=== PATIENT | male | born 1970 | race Caucasian/White ===

== ENCOUNTER 2019-02-24 21:51 | Emergency (ER) | payer SELFPAY ==
[~2019-02-24] VITALS: Ht 177.8 cm; Wt 112.5 kg
[2019-02-24 22:17] VITALS: BP 136/85
[2019-02-24] MEDS ORDERED: LORazepam 2 MG/ML VIAL IVP ONE (23:05)
[2019-02-24] MEDS ORDERED: ALBUTEROL SULFATE/IPRATROPIU 3 ML SOL IH ONE (23:05)
[2019-02-24 23:18] LABS: BASOPHILS # (AUTO) 0.1 K/uL (0.00-0.22); BASOPHILS % (AUTO) 1.3 % (0.0-2.0); EOSINOPHILS # (AUTO) 0.3 K/uL (0-0.4); EOSINOPHILS % (AUTO) 3.1 % (0.0-4.0); HEMATOCRIT 40.7 % (36-52); HEMOGLOBIN 13.3 g/dL (12.0-18.0); LYMPHOCYTES # (AUTO) 2.1 K/uL (2.0-11.5); LYMPHOCYTES % (AUTO) 22.8 % (20.5-51.1); MEAN CORPUSCULAR HEMOGLOBIN 27 pg (27-31); MEAN CORPUSCULAR HGB CONC 33 g/dL (33-37); MONOCYTES # (AUTO) 0.7 K/uL (0.8-1.0); MONOCYTES % (AUTO) 7.1 % (1.7-9.3); NEUTROPHILS # (AUTO) 6.1 K/uL (1.8-7.7); NEUTROPHILS % (AUTO) 65.7 % (42.2-75.2); PLATELET COUNT (AUTO) 296 K/uL (140-450); RED BLOOD CELL COUNT(AUTO) 4.96 MIL/uL (4.20-6.10); WHITE BLOOD COUNT (AUTO) 9.3 K/uL (4.8-10.8)
[2019-02-24 23:27] LABS: ANION GAP 10.1 (8-16); CARBON DIOXIDE 29.8 mmol/L (21-32); CREATININE 0.9 mg/dL (0.7-1.3); POTASSIUM 3.9 mmol/L (3.5-5.1)
[2019-02-24 23:32] LABS: ALBUMIN 3.3 g/dL (3.4-5.0); TOTAL BILIRUBIN 0.3 mg/dL (0.0-1.0)
[2019-02-24 23:35] LABS: PROTHROMBIN TIME 10.3 secs (10.8-13.4)
[2019-02-25] MEDS ORDERED: ALBUTEROL SULFATE/IPRATROPIU 3 ML SOL IH ONE
[2019-02-25] MEDS ORDERED: methylPREDNISolone SS 125 MG/2 ML VIAL IVP ONE
[2019-02-25 00:18] VITALS: BP 138/74
== END 2019-02-25 00:18 | disposition home or self-care (01) ==
LOC: MED 21:51
DX: J44.9 Chronic obstructive pulmonary disease, unspecified (principal); F17.210 Nicotine dependence, cigarettes, uncomplicated; E11.9 Type 2 diabetes mellitus without complications; I10 Essential (primary) hypertension; F41.9 Anxiety disorder, unspecified; Z71.6 Tobacco abuse counseling
CPT/HCPCS: 36415; 71045; 80053; 83880; 84484; 85025; 85610; 85730; 87040; 93005; 94640; 94760; 96374; 99284; J2060; J7620

== ENCOUNTER 2019-03-26 22:15 | Inpatient (IN) | payer MEDICAID ==
[~2019-03-26] VITALS: Ht 177.8 cm; Wt 117.9 kg
[2019-03-26 22:15] VITALS: BP 130/76
--- NOTE | 2019-03-26 22:18 | NUR ---
Patient BIBA ACLS, transferred to bed 5. RN evaluating patient at bedside.
--- NOTE | 2019-03-26 22:40 | NUR ---
49/M BIBA FROM HOME, C/O EPISODE OF SOB, PALPITATIONS AND ANXIETY, 1 HR AGO. PT REPORTS FEELING THESE SYMPTOMS THAT PAST 2 MONTHS BUT WORSENING. PT ALSO C/O BLE PAIN AND SWELLING. PT AWAKE AND ALERT, SKIN NORMAL WARM AND DRY, SPO2 97% ON RA, RR 20 EVEN AND UNLABORED. LUNG SOUNDS CLEAR BL. HR 94, NSR ON MONITOR. BLE EDEMA NOTED. HX CHF, COPD, HTN, DM, ASTHMA, HLD, ANXIETY RX METFORMIN, HTN MED, HLD MED, ALBUTEROL INH; NONCOMPLIANT AT THIS TIME DUE TO PT NOT HAVING INSURANCE
[2019-03-26 23:41] LABS: BASOPHILS # (AUTO) 0.1 K/uL (0.00-0.22); BASOPHILS % (AUTO) 0.7 % (0.0-2.0); EOSINOPHILS # (AUTO) 0.1 K/uL (0-0.4); EOSINOPHILS % (AUTO) 1.8 % (0.0-4.0); HEMATOCRIT 38.1 % (36-52); HEMOGLOBIN 12.5 g/dL (12.0-18.0); LYMPHOCYTES % (AUTO) 25.5 % (20.5-51.1); MEAN CORPUSCULAR HEMOGLOBIN 27 pg (27-31); MEAN CORPUSCULAR HGB CONC 33 g/dL (33-37); MEAN CORPUSCULAR VOLUME 80.9 fL (80-94); MONOCYTES # (AUTO) 0.6 K/uL (0.8-1.0); MONOCYTES % (AUTO) 7.8 % (1.7-9.3); NEUTROPHILS # (AUTO) 5.1 K/uL (1.8-7.7); NEUTROPHILS % (AUTO) 64.2 % (42.2-75.2); PLATELET COUNT (AUTO) 266 K/uL (140-450); RED BLOOD CELL COUNT(AUTO) 4.71 MIL/uL (4.20-6.10); RED CELL DISTRIBUTION WIDTH 16.7 % (11.6-13.7); WHITE BLOOD COUNT (AUTO) 7.9 K/uL (4.8-10.8)
[2019-03-26 23:48] LABS: ANION GAP 11.2 (8-16); CARBON DIOXIDE 26.5 mmol/L (21-32); CREATININE 0.8 mg/dL (0.7-1.3); POTASSIUM 3.7 mmol/L (3.5-5.1)
[2019-03-26 23:53] LABS: ALBUMIN 3.3 g/dL (3.4-5.0); TOTAL BILIRUBIN 0.5 mg/dL (0.0-1.0)
[2019-03-27] MEDS ORDERED: KETOROLAC 30 MG/ML VIAL IVP ONE (00:05)
[2019-03-27] MEDS ORDERED: FUROSEMIDE 40 MG/4 ML VIAL IVP ONE (00:05)
--- NOTE | 2019-03-27 00:26 | NUR ---
PT C/O ANXIETY AND BLE PAIN. DR GARCIA MADE AWARE. ADMINISTERED ORDERED MEDS WITH EDUCATION, PT VERBALIZED UNDERSTANDING, TOLERATED MEDS WELL. ALL NEEDS MET AT THIS TIME.
[2019-03-27] MEDS ORDERED: LORazepam 2 MG/ML VIAL IVP ONE (00:55)
--- NOTE | 2019-03-27 01:10 | NUR ---
Dr. Tavera evaluating patient at bedside.
--- NOTE | 2019-03-27 01:25 | NUR ---
Patient will be admitted to care of DR HEARN. Admited to TELE. Will go to room 119B. Belongings list completed. Report to KIMBER COLINDRES
[2019-03-27 01:30] VITALS: BP 121/77
--- NOTE | 2019-03-27 01:30 | NUR ---
RECEIVED PT FROM ER VIA JAYE REPORT GIVEN AT BED SIDE ON TELEMETRYSR PT IS AAOX4 AMBULATORY BILATERAL LOWER EXTREMITIES EDEMA PITTING 2+ NOT SOB NOTED HL ON LEFT AC PATENT, ON LEFT LOWER LEG SMALL ABRASION PT DENIES ANY PAIN ,MRSA NARES PROTOCOL DONE AND SENT TO LAB , PT IS ORIENTED TO THE FLOOR CALL LIGHT WITHIN REACH
[2019-03-27] MEDS ORDERED: METF500T PO (01:32)
[2019-03-27] MEDS ORDERED: FURO-572 PO (01:32)
[2019-03-27] MEDS ORDERED: NACL 0.9% 1,000 ML IV SCH (01:42)
[2019-03-27] MEDS ORDERED: DEXTROSE 50% 50 ML SYR IVP PRN (01:45)
[2019-03-27] MEDS ORDERED: VANCOMYCIN PER PHARMACY MC PRN (01:45)
[2019-03-27] MEDS ORDERED: HEPARIN PER PHARMACY MC PRN (01:45)
[2019-03-27] MEDS ORDERED: INSULIN LISPRO SLIDING SCALE 100 UNITS/ML VIAL SUBQ PRN (01:45)
[2019-03-27] MEDS ORDERED: ACETAMINOPHEN 325 MG TAB PO PRN (01:45)
[2019-03-27] MEDS ORDERED: HYDROcodone/APAP 7.5/325 MG 1 TAB PO PRN (01:45)
[2019-03-27] MEDS ORDERED: ONDANSETRON 4 MG/2 ML VIAL IVP PRN (01:45)
[2019-03-27] MEDS ORDERED: ZOLPIDEM 5 MG TAB PO PRN (01:45)
[2019-03-27] MEDS ORDERED: ALBUTEROL SULFATE/IPRATROPIU 3 ML SOL IH PRN (02:10)
[2019-03-27] MEDS ORDERED: VANCOMYCIN 1,500 MG in NACL 0.9% 500 ML IV SCH (02:30)
[2019-03-27] MEDS ORDERED: hePARIN / DEXT 5% PREMIX 250 ML IV SCH (02:40)
--- NOTE | 2019-03-27 03:11 | NUR ---
PT ON HEPARIN DRIP ORDER AND BOLUS HEPARIN 4000 IVP GIVEN ORDER
[2019-03-27 03:14] LABS: PROTHROMBIN TIME 10.1 secs (10.8-13.4)
--- NOTE | 2019-03-27 03:16 | NUR ---
AT 0316 AM HEPARIN DRIP STARTED AT 1000 UNITS /H OR 10 ML/H
[2019-03-27 03:26] LABS: FREE T4 (FREE THYROXINE) 1.2 ng/dL (0.76-1.46); MAGNESIUM 1.7 mg/dL (1.8-2.4); PHOSPHORUS 5.3 mg/dL (2.5-4.9); THYROID STIMULATING HORMONE 1.52 uIU/mL (0.34-3.74)
[2019-03-27 04:00] VITALS: BP 150/77
--- NOTE | 2019-03-27 05:00 | NUR ---
PT ON HEPARIN DRIP NOT DISTRESS NOTED SLEEPING WELL AT THIS TIME ON TELE SR
--- NOTE | 2019-03-27 06:30 | NUR ---
BLOOD SUGAR TEST 164 COVERAGE WITH 2 UNITS SUBQ HUMALOG FOLLOW PROTOCOL
--- NOTE | 2019-03-27 07:09 | NUR ---
HEPARIN DRIP 1000 UNITS/H OR 10 ML/H PT WILLBE ENDORSED TODAY SHIFT NURSE FOR CONTINUE OF CARE
--- NOTE | 2019-03-27 07:14 | NUR ---
RECEIVED PT FROM [employer] MEAT SEPARATOR OPERATOR NURSEKIMBER, PT IS AWAKE AND EATING HIS BREAKFAST, IV LINE ON THE LEFT AC G. 20 WITH HEPARIN DRIP INFUSING AT 1000 UNITS/HR, SIDE RAILS ARE UP AND CALL LIGHT WITHIN REACH,PT DENIES PAIN AND NO SIGN OF DISTRESS NOTED. WILL MONITOR PT.
[2019-03-27 07:29] LABS: BASOPHILS # (AUTO) 0.1 K/uL (0.00-0.22); EOSINOPHILS # (AUTO) 0.1 K/uL (0-0.4); EOSINOPHILS % (AUTO) 1.4 % (0.0-4.0); HEMATOCRIT 42.7 % (36-52); HEMOGLOBIN 13.8 g/dL (12.0-18.0); LYMPHOCYTES # (AUTO) 1.9 K/uL (2.0-11.5); LYMPHOCYTES % (AUTO) 22.3 % (20.5-51.1); MEAN CORPUSCULAR HEMOGLOBIN 26 pg (27-31); MEAN CORPUSCULAR HGB CONC 32 g/dL (33-37); MEAN CORPUSCULAR VOLUME 81.7 fL (80-94); MONOCYTES # (AUTO) 0.6 K/uL (0.8-1.0); NEUTROPHILS # (AUTO) 5.9 K/uL (1.8-7.7); NEUTROPHILS % (AUTO) 68.3 % (42.2-75.2); PLATELET COUNT (AUTO) 288 K/uL (140-450); RED BLOOD CELL COUNT(AUTO) 5.23 MIL/uL (4.20-6.10); RED CELL DISTRIBUTION WIDTH 17.1 % (11.6-13.7); WHITE BLOOD COUNT (AUTO) 8.7 K/uL (4.8-10.8)
[2019-03-27] MEDS ORDERED: BLOOD GLUCOSE MONITORING 1 DEV DEV FS SCH (07:30)
[2019-03-27 07:46] LABS: ANION GAP 13.3 (8-16); CARBON DIOXIDE 28.5 mmol/L (21-32); POTASSIUM 3.8 mmol/L (3.5-5.1)
[2019-03-27 07:54] LABS: MAGNESIUM 1.7 mg/dL (1.8-2.4); PHOSPHORUS 4.2 mg/dL (2.5-4.9)
[2019-03-27 08:00] VITALS: BP 137/75
[2019-03-27] MEDS ORDERED: metFORMIN 500 MG TAB PO SCH (08:00)
[2019-03-27] MEDS ORDERED: MAG SULF 2000 MG/WATER PREMIX 50 ML IV SCH (08:30)
--- NOTE | 2019-03-27 08:48 | NUR ---
PT VERBALIZED THAT HE WANTS TO SMOKE AND WAS ADVISED THAT HE CANNOT DO IT HERE IN THE HOSPITAL, SO PT SAID THAT IF HE CANNOT SMOKE THEN HE WILL LEAVE THE HOSPITAL. DR. ROCHA SPOKE TO PT AND WAS TOLD OF THE CONSEQUENCES IF PT LEAVES AMA, SAID TO PT THAT IF HE LEAVES, HE MIGHT HAVE AN ISCHEMIA BU PT REFUSED. PT SIGNED AMA FORM WITH THE PRESENCE OF .
--- NOTE | 2019-03-27 08:59 | NUR ---
PT WAS GIVEN THE ORAL MEDICATIONS AND TOLERATED IT.
[2019-03-27] MEDS ORDERED: GABAPENTIN 300 MG CAP PO SCH (09:00)
[2019-03-27] MEDS ORDERED: FUROSEMIDE 40 MG/4 ML VIAL IVP SCH (09:00)
[2019-03-27] MEDS ORDERED: AMPICILLIN/SULBACTAM 1.5 GM in NACL 0.9% 50 ML IV SCH (09:00)
[2019-03-27] MEDS ORDERED: DOCUSATE SODIUM 100 MG GELCAP PO SCH (09:00)
[2019-03-27] MEDS ORDERED: LISINOPRIL 10 MG TAB PO SCH (09:00)
--- NOTE | 2019-03-27 09:05 | NUR ---
PT LEFT AMA, WALKED THROUGH THE LOBBY, PT IS STABLE AT THIS TIME. DR. ROCHA WAS INFORMED. PRESCRIPTION WAS GIVEN TO PT.
--- NOTE | 2019-03-27 09:10 | NUR ---
RECEIVED FNS REFERRAL. PATIENT HAS BEEN SCREENED AND CATEGORIZED HIGH NUTRITION RISK. PATIENT WILL BE SEEN WITHIN 1-2 DAYS OF ADMISSION. 03/27/[address]
[2019-03-27] MEDS ORDERED: SIMVASTATIN 10 MG TAB PO SCH (21:00)
== END 2019-03-27 10:52 | disposition left against medical advice (07) | DRG 194 ==
LOC: MED 22:15 → MTU 03-27 00:56
PROVIDERS: ADMIT General Practice; ATTEND General Practice
DX: I11.0 Hypertensive heart disease with heart failure (principal); E83.42 Hypomagnesemia; L03.115 Cellulitis of right lower limb; L03.116 Cellulitis of left lower limb; E11.9 Type 2 diabetes mellitus without complications; E78.5 Hyperlipidemia, unspecified; E66.9 Obesity, unspecified; I50.43 Acute on chronic combined systolic (congestive) and diastolic (congestive) heart failure; J44.9 Chronic obstructive pulmonary disease, unspecified; F41.9 Anxiety disorder, unspecified; F17.210 Nicotine dependence, cigarettes, uncomplicated; M10.9 Gout, unspecified; Z83.6 Family history of other diseases of the respiratory system; Z82.49 Family history of ischemic heart disease and other diseases of the circulatory system; Z68.37 Body mass index [BMI] 37.0-37.9, adult; Z53.21 Procedure and treatment not carried out due to patient leaving prior to being seen by health care provider
CPT/HCPCS: 36415; 71045; 80048; 80053; 82150; 82948; 83036; 83690; 83735; 83880; 84100; 84439; 84443; 84484; 85025; 85610; 85651; 85730; 86140; 87040; 87081; 93005; 93925; 93970; 96374; 96375; 99285; J0295; J1644; J1815; J1885; J1940; J2060; J3370; J7030; Q0092

== ENCOUNTER 2019-05-13 01:03 | Emergency (ER) | payer SELFPAY ==
[~2019-05-13] VITALS: Ht 177.8 cm; Wt 108.9 kg
[~2019-05-13 01:03] MED LIST: FURO-572 PO; METF500T PO
[2019-05-13 01:08] VITALS: BP 110/79
[2019-05-13] MEDS ORDERED: LORazepam 2 MG/ML VIAL IM ONE (01:10)
[2019-05-13 01:42] VITALS: BP 110/79
== END 2019-05-13 01:42 | disposition home or self-care (01) ==
LOC: MED 01:03
DX: F41.9 Anxiety disorder, unspecified (principal); J44.9 Chronic obstructive pulmonary disease, unspecified; E11.9 Type 2 diabetes mellitus without complications; I11.0 Hypertensive heart disease with heart failure; I50.9 Heart failure, unspecified; F17.210 Nicotine dependence, cigarettes, uncomplicated; Z79.84 Long term (current) use of oral hypoglycemic drugs; Z79.899 Other long term (current) drug therapy
CPT/HCPCS: 96372; 99284; J2060

== ENCOUNTER 2020-04-11 01:40 | Emergency (ER) | payer OTHER ==
[~2020-04-11] VITALS: Ht 180.3 cm; Wt 113.4 kg
--- NOTE | 2020-04-11 01:58 | NUR ---
pt ambulated to ER bed 8 w/ steady gait.
[2020-04-11 02:01] VITALS: BP 164/89
--- NOTE | 2020-04-11 02:05 | NUR ---
50 y/o male presented to ED c/o SOB x 1 day . Pt states he is having difficulty catching his breath. Pt states he was trying to go upstairs at his apartment complex and was having an issue catching his breath. Pt thinks he may be more having anxiety about being SOB than actually being SOB. A/O x 4 , hx of COPD - Lung sounds BL clear, RR even and unlabored , SAO2 97%. pt admits to smoking 1/2 cigarettes a day. Pt sitting in chair at bedside, pt states he can't lay in the bed, it makes him feel anxious. No acute distress noted at this time. pmh: COPD, HTN, DM, Anxiety, ax: steroids (hives)
--- NOTE | 2020-04-11 02:10 | NUR ---
ERMD at bedside for medical evaluation.
[2020-04-11] MEDS ORDERED: ALBUTEROL SULFATE/IPRATROPIU 3 ML SOL IH ONE (02:15)
[2020-04-11] MEDS ORDERED: LORazepam 1 MG TAB PO ONE (02:15)
--- NOTE | 2020-04-11 02:19 | NUR ---
RT at bedside.
--- NOTE | 2020-04-11 02:47 | NUR ---
xray at bedside.
[2020-04-11 02:57] VITALS: BP 164/89
--- NOTE | 2020-04-11 02:57 | NUR ---
Patient discharged with v/s stable. Written and verbal after care instructions given and explained. Patient verbalized understanding. Ambulatory with steady gait. All questions addressed prior to discharge. Advised to follow up with PMD.
== END 2020-04-11 02:57 | disposition home or self-care (01) ==
LOC: MED 01:40
DX: F41.9 Anxiety disorder, unspecified (principal); R06.02 Shortness of breath; J44.9 Chronic obstructive pulmonary disease, unspecified; E11.9 Type 2 diabetes mellitus without complications; F17.210 Nicotine dependence, cigarettes, uncomplicated; I50.9 Heart failure, unspecified; I10 Essential (primary) hypertension; J45.909 Unspecified asthma, uncomplicated; Z79.899 Other long term (current) drug therapy
CPT/HCPCS: 71045; 82948; 94640; 99284; Q0092

== ENCOUNTER 2021-03-19 01:14 | Emergency (ER) | payer OTHER ==
[~2021-03-19] VITALS: Ht 180.3 cm; Wt 108.9 kg
[2021-03-19 01:41] VITALS: BP 126/70
[2021-03-19] MEDS ORDERED: IBUPROFEN 800 MG TAB PO ONE (02:00)
--- NOTE | 2021-03-19 02:30 | NUR ---
PATIENT REFUSED MEDICATION, ERMD NOTED. MEDICATION RETURNED
[2021-03-19] MEDS ORDERED: HYDROcodone/APAP 5/325 MG 1 TAB TAB PO ONE (02:55)
[2021-03-19] MEDS ORDERED: MUPI2CRE22 TP (03:10)
[2021-03-19] MEDS ORDERED: IBUP-2213 PO (03:10)
[2021-03-19] MEDS ORDERED: SULF-59 PO (03:10)
[2021-03-19] MEDS ORDERED: BACITRACIN OINT 500 UNITS/GM PKT TP ONE (03:11)
[2021-03-19 04:00] VITALS: BP 126/70
== END 2021-03-19 03:43 | disposition home or self-care (01) ==
LOC: MED 01:14
DX: L97.519 Non-pressure chronic ulcer of other part of right foot with unspecified severity (principal); L03.031 Cellulitis of right toe; I11.0 Hypertensive heart disease with heart failure; I50.9 Heart failure, unspecified; J44.9 Chronic obstructive pulmonary disease, unspecified; Z79.84 Long term (current) use of oral hypoglycemic drugs; Z79.899 Other long term (current) drug therapy
CPT/HCPCS: 73630; 99283

== ENCOUNTER 2021-06-30 19:38 | Emergency (ER) | payer OTHER ==
[~2021-06-30] VITALS: Ht 180.3 cm; Wt 113.2 kg
[~2021-06-30 19:38] MED LIST changes: +IBUP-2213 PO; +MUPI2CRE22 TP; +SULF-59 PO
[2021-06-30 19:58] VITALS: BP 140/101
--- NOTE | 2021-06-30 20:01 | NUR ---
JEANCARLOS SCHAEFER IN TRIAGE ASSESSING PT.
[2021-06-30] MEDS ORDERED: ONDANSETRON 4 MG ODT PO ONE (20:05)
[2021-06-30] MEDS ORDERED: LORazepam 0.5 MG TAB PO ONE (20:05)
--- NOTE | 2021-06-30 20:41 | NUR ---
SEE COMPLETE ASSESSMENT FOR FURTHER INFORMATION. PT RETURNED TO THE LOBBY TO A/W BED.
[2021-06-30] MEDS ORDERED: BACI-105 TP (21:14)
== END 2021-06-30 21:24 | disposition home or self-care (01) ==
LOC: MED 19:38
DX: S80.812A Abrasion, left lower leg, initial encounter (principal); E11.65 Type 2 diabetes mellitus with hyperglycemia; J44.1 Chronic obstructive pulmonary disease with (acute) exacerbation; I10 Essential (primary) hypertension; X58.XXXA Exposure to other specified factors, initial encounter; Y93.89 Activity, other specified; Y92.89 Other specified places as the place of occurrence of the external cause; Y99.8 Other external cause status
CPT/HCPCS: 99283; Q0162

== ENCOUNTER 2022-02-20 03:00 | Emergency (ER) | payer OTHER ==
[~2022-02-20] VITALS: Ht 180.3 cm; Wt 122.5 kg
[~2022-02-20 03:00] MED LIST changes: +BACI-105 TP; +METF-346 PO; -METF500T PO
[2022-02-20 03:04] VITALS: BP 114/72
--- NOTE | 2022-02-20 03:18 | NUR ---
PT AMBULATED TO BED 4
--- NOTE | 2022-02-20 03:22 | NUR ---
52 Y/O MALE BIBS FROME HOME, C/O ULCER TO RIGHT FOOT AND PAIN TO BILATERAL LOWER EXTREMETIES. PT STATES HE HAS HAD THE PAIN FOR 2 WKS. TODAY FAMILY NOTICED THE ULCERS. PT ADMITS TO BEING NON COMPLIANT WITH MEDS AMD NOT CONTROLLING HIS SUGAR. PAIN IS 10/10 TO BOTH FEET, BLE EDEMA, NON PITTING. DENIES N/V/D, SAMPSON, CP, SOB, FEVER, OR COUGH. SKIN IS DUSKY/WARM/DRY. A/OX4, UNLABORED BREATHING, AMBULATORY. HX: HTN, GOUT, NEUROPATHY, DM, ASTHMA NKA.
[2022-02-20] MEDS ORDERED: HYDR-5080 PO (03:30)
[2022-02-20] MEDS ORDERED: GABA100C PO (03:30)
--- NOTE | 2022-02-20 03:30 | NUR ---
Dr. Borja examining patient.
[2022-02-20] MEDS ORDERED: MORPHINE SULFATE 4 MG/ML SYR IM ONE (03:35)
[2022-02-20] MEDS ORDERED: CEPH-588 PO (03:56)
[2022-02-20 04:08] VITALS: BP 122/80
--- NOTE | 2022-02-20 04:09 | NUR ---
Patient discharged with v/s stable. Written and verbal after care instructions given and explained. Patient alert, oriented and verbalized understanding of instructions. Ambulatory with steady gait. All questions addressed prior to discharge. ID band removed. Patient advised to follow up with PMD. Rx of KEFLEX given. Patient educated on indication of medication including possible reaction and side effects. Opportunity to ask questions provided and answered. VSS, A/OX4, UNLABORED BREATHING, AMBULATORY, AND CALM DEMEANOR.
== END 2022-02-20 04:09 | disposition home or self-care (01) ==
LOC: MED 03:00
DX: E11.621 Type 2 diabetes mellitus with foot ulcer (principal); J44.9 Chronic obstructive pulmonary disease, unspecified; I10 Essential (primary) hypertension; F17.200 Nicotine dependence, unspecified, uncomplicated; Z79.84 Long term (current) use of oral hypoglycemic drugs; Z79.899 Other long term (current) drug therapy
CPT/HCPCS: 96372; 99283; J2270

== ENCOUNTER 2022-03-05 02:10 | Emergency (ER) | payer OTHER ==
[~2022-03-05] VITALS: Ht 180.3 cm; Wt 101.6 kg
[~2022-03-05 02:10] MED LIST changes: -BACI-105 TP; +CEPH-588 PO; +GABA100C PO; +HYDR-5080 PO; -IBUP-2213 PO; -MUPI2CRE22 TP; -SULF-59 PO
[2022-03-05 02:20] VITALS: BP 115/79
--- NOTE | 2022-03-05 02:28 | NUR ---
Patient ambulated to bed 2.
--- NOTE | 2022-03-05 02:55 | NUR ---
Dr. De La Torre examining patient.
[2022-03-05] MEDS ORDERED: ONDANSETRON 4 MG ODT PO ONE (03:05)
[2022-03-05] MEDS ORDERED: MORPHINE SULFATE 10 MG/ML VIAL IM ONE (03:05)
[2022-03-05] MEDS ORDERED: GABAPENTIN 300 MG CAP PO ONE (03:05)
[2022-03-05] MEDS ORDERED: ONDANSETRON 4 MG/2 ML VIAL IVP ONE (03:10)
[2022-03-05] MEDS ORDERED: NACL 0.9% 2,000 ML IV ONE (03:10)
[2022-03-05] MEDS ORDERED: MORPHINE SULFATE 10 MG/ML VIAL IVP ONE (03:10)
--- NOTE | 2022-03-05 03:44 | NUR ---
Patient does not wish to proceed with medical care recommended by DR GIRMM. Patient given information related to possible complications, up to and including , which could occur as a result of leaving hospital at this time. Patient verbalizes understanding of risks involved leaving against medical advice. Patient has signed AMA form.
[2022-03-05 03:49] VITALS: BP 140/60
== END 2022-03-05 03:44 | disposition left against medical advice (07) ==
LOC: MED 02:10
DX: E11.65 Type 2 diabetes mellitus with hyperglycemia (principal); M79.671 Pain in right foot; M79.672 Pain in left foot; G62.9 Polyneuropathy, unspecified; I11.0 Hypertensive heart disease with heart failure; I50.9 Heart failure, unspecified; J44.9 Chronic obstructive pulmonary disease, unspecified; Z79.84 Long term (current) use of oral hypoglycemic drugs; Z79.899 Other long term (current) drug therapy
CPT/HCPCS: 96374; 96375; 99284; J2270; J2405; J7030

== ENCOUNTER 2022-05-27 06:00 | Emergency (ER) | payer OTHER ==
[~2022-05-27] VITALS: Ht 180.3 cm; Wt 108.9 kg
[2022-05-27 06:04] VITALS: BP 139/83
--- NOTE | 2022-05-27 06:25 | NUR ---
TO BED 4
[2022-05-27] MEDS ORDERED: HYDROcodone/APAP 5/325 MG 1 TAB TAB PO ONE (06:40)
[2022-05-27] MEDS ORDERED: NACL 0.9% 1,000 ML IV ONE (06:40)
[2022-05-27 07:07] LABS: ANION GAP 11.9 (8-16); CARBON DIOXIDE 28.4 mmol/L (21-32); POTASSIUM 4.3 mmol/L (3.5-5.1)
[2022-05-27] MEDS ORDERED: INSULIN REGULAR, HUMAN 100 UNIT/ML VIAL SUBQ ONE (07:15)
[2022-05-27 07:30] LABS: BASOPHILS % (AUTO) 0.4 % (0.0-2.0); EOSINOPHILS # (AUTO) 0.1 K/uL (0-0.4); EOSINOPHILS % (AUTO) 1.4 % (0.0-4.0); HEMOGLOBIN 13.6 g/dL (12.0-18.0); LYMPHOCYTES # (AUTO) 2.4 K/uL (2.0-11.5); LYMPHOCYTES % (AUTO) 25.9 % (20.5-51.1); MEAN CORPUSCULAR HEMOGLOBIN 28 pg (27-31); MEAN CORPUSCULAR HGB CONC 33 g/dL (33-37); MEAN CORPUSCULAR VOLUME 82.7 fL (80-94); MONOCYTES # (AUTO) 0.7 K/uL (0.8-1.0); MONOCYTES % (AUTO) 7.6 % (1.7-9.3); NEUTROPHILS # (AUTO) 5.9 K/uL (1.8-7.7); NEUTROPHILS % (AUTO) 64.7 % (42.2-75.2); PLATELET COUNT (AUTO) 302 K/uL (140-450); RED BLOOD CELL COUNT(AUTO) 4.95 MIL/uL (4.20-6.10); RED CELL DISTRIBUTION WIDTH 13.7 % (11.6-13.7); WHITE BLOOD COUNT (AUTO) 9.2 K/uL (4.8-10.8)
--- NOTE | 2022-05-27 07:40 | NUR ---
Pt report given to BERNADINE JORGENSEN. BY BOAT WORKERBERNADINE BENÍTEZ Transfer of care at this time.
[2022-05-27] MEDS ORDERED: KETOROLAC 15 MG/ML VIAL IVP ONE (08:20)
--- NOTE | 2022-05-27 09:04 | NUR ---
Patient discharged with v/s stable. Written and verbal after care instructions given and explained. Patient alert, oriented and verbalized understanding of instructions. Ambulatory with steady gait. All questions addressed prior to discharge. ID band removed. Patient advised to follow up with PMD.NO Rx given. Patient educated on indication of medication including possible reaction and side effects. Opportunity to ask questions provided and answered. AKIRA DISCHARGED BY ER/MD DR ROCHA
[2022-05-27] MEDS ORDERED: BACITRACIN OINT 500 UNITS/GM PKT TP ONE (09:05)
[2022-05-27 09:40] VITALS: BP 122/75
== END 2022-05-27 09:04 | disposition home or self-care (01) ==
LOC: MED 06:00
DX: E11.621 Type 2 diabetes mellitus with foot ulcer (principal); E11.65 Type 2 diabetes mellitus with hyperglycemia; M10.9 Gout, unspecified; J45.909 Unspecified asthma, uncomplicated; I25.10 Atherosclerotic heart disease of native coronary artery without angina pectoris; J44.9 Chronic obstructive pulmonary disease, unspecified; I10 Essential (primary) hypertension; Z79.4 Long term (current) use of insulin; Z79.899 Other long term (current) drug therapy
CPT/HCPCS: 36415; 73630; 80048; 85025; 85651; 86140; 87040; 96372; 96374; 99284; J1815; J1885; J7030; Q0092

== ENCOUNTER 2022-06-12 04:54 | Emergency (ER) | payer OTHER ==
[~2022-06-12] VITALS: Ht 180.3 cm; Wt 108.9 kg
[2022-06-12 05:01] VITALS: BP 125/80
--- NOTE | 2022-06-12 05:12 | NUR ---
ER MD in triage examining pt
[2022-06-12] MEDS ORDERED: traMADol 50 MG TAB PO ONE (05:25)
[2022-06-12] MEDS ORDERED: DOXYCYCLINE 100 MG CAP PO STA (05:26)
--- NOTE | 2022-06-12 06:15 | NUR ---
PT CALLED FROM INSIDE LOBBY AND OUTSIDE FOR TREATMENT, NO RESPONSE
--- NOTE | 2022-06-12 06:47 | NUR ---
PATIENT ELOPED FROM FACILITY. DISCHARGE INSTRUCTIONS NOT GIVEN TO PATIENT. DR. PATEL NOTIFIED.
--- NOTE | 2022-06-12 06:47 | NUR ---
called for pt. no answer.
== END 2022-06-12 06:15 | disposition left against medical advice (07) ==
LOC: MED 04:54
DX: E11.621 Type 2 diabetes mellitus with foot ulcer (principal); M25.511 Pain in right shoulder; J44.9 Chronic obstructive pulmonary disease, unspecified; I11.0 Hypertensive heart disease with heart failure; I50.9 Heart failure, unspecified; Z79.84 Long term (current) use of oral hypoglycemic drugs; Z79.899 Other long term (current) drug therapy
CPT/HCPCS: 99283

== ENCOUNTER 2022-06-18 13:58 | Inpatient (IN) | payer OTHER ==
[~2022-06-18] VITALS: Ht 180.3 cm; Wt 108.9 kg
[2022-06-18 14:08] VITALS: BP 145/96
[2022-06-18] MEDS ORDERED: MORPHINE SULFATE 4 MG/ML SYR IVP ONE (14:30)
[2022-06-18] MEDS ORDERED: NACL 0.9% 1,000 ML IV ONE (14:30)
[2022-06-18 14:44] LABS: BASOPHILS % (AUTO) 0.4 % (0.0-2.0); EOSINOPHILS # (AUTO) 0.2 K/uL (0-0.4); EOSINOPHILS % (AUTO) 1.6 % (0.0-4.0); HEMATOCRIT 40.4 % (36-52); HEMOGLOBIN 13.2 g/dL (12.0-18.0); LYMPHOCYTES # (AUTO) 1.7 K/uL (2.0-11.5); LYMPHOCYTES % (AUTO) 17.2 % (20.5-51.1); MEAN CORPUSCULAR HEMOGLOBIN 27 pg (27-31); MEAN CORPUSCULAR HGB CONC 33 g/dL (33-37); MONOCYTES # (AUTO) 0.6 K/uL (0.8-1.0); NEUTROPHILS # (AUTO) 7.6 K/uL (1.8-7.7); NEUTROPHILS % (AUTO) 74.8 % (42.2-75.2); PLATELET COUNT (AUTO) 535 K/uL (140-450); RED BLOOD CELL COUNT(AUTO) 4.93 MIL/uL (4.20-6.10); RED CELL DISTRIBUTION WIDTH 14.1 % (11.6-13.7); WHITE BLOOD COUNT (AUTO) 10.1 K/uL (4.8-10.8)
[2022-06-18 15:12] LABS: ALBUMIN 2.5 g/dL (3.4-5.0); ANION GAP 14.8 (8-16); CARBON DIOXIDE 29.2 mmol/L (21-32); TOTAL BILIRUBIN 0.3 mg/dL (0.0-1.0)
[2022-06-18] MEDS ORDERED: cefTRIAXone 2,000 MG in DEXTROSE 5% 100 ML IV ONE (15:15)
[2022-06-18] MEDS ORDERED: VANCOMYCIN 2,000 MG in DEXTROSE 5% 250 ML IV ONE (15:15)
[2022-06-18] MEDS ORDERED: INSULIN REGULAR, HUMAN 100 UNIT/ML VIAL SUBQ ONE (15:15)
[2022-06-18] MEDS ORDERED: cefTRIAXone 2,000 MG VIAL ONE (15:31)
[2022-06-18] MEDS ORDERED: MORPHINE SULFATE 4 MG/ML SYR IVP PRN (15:55)
[2022-06-18] MEDS ORDERED: NACL 0.9% 1,000 ML IV SCH (15:55)
[2022-06-18] MEDS ORDERED: ACETAMINOPHEN 325 MG TAB PO PRN (15:55)
[2022-06-18] MEDS ORDERED: VANCOMYCIN PER PHARMACY MC PRN (15:55)
[2022-06-18] MEDS ORDERED: POTASSIUM CHLORIDE 10 MEQ TABER PO PRN (15:55)
[2022-06-18] MEDS ORDERED: KCL 20 MEQ/WATER INJ PREMIX 200 ML IV PRN (15:55)
[2022-06-18] MEDS ORDERED: MAG SULF 2000 MG/WATER PREMIX 50 ML IV PRN (15:55)
[2022-06-18] MEDS ORDERED: ONDANSETRON 4 MG/2 ML VIAL IVP PRN (15:55)
[2022-06-18] MEDS ORDERED: HYDROcodone/APAP 5/325 MG 1 TAB TAB PO PRN (15:55)
[2022-06-18] MEDS ORDERED: ZOLPIDEM 5 MG TAB PO PRN (15:55)
[2022-06-18] MEDS ORDERED: INSULIN LISPRO SLIDING SCALE 100 UNITS/ML VIAL SUBQ PRN (16:00)
[2022-06-18] MEDS ORDERED: INSULIN LANTUS 100 UNITS/ML 10 ML VIAL SUBQ SCH (16:10)
[2022-06-18] MEDS ORDERED: VANCOMYCIN 1,000 MG VIAL ONE (16:13)
[2022-06-18] MEDS ORDERED: LISI2.5T12 PO (17:01)
[2022-06-18] MEDS ORDERED: ALBU0.0912 IH (17:01)
[2022-06-18] MEDS ORDERED: FURO-572 PO (17:01)
[2022-06-18] MEDS ORDERED: GABA100C PO (17:01)
[2022-06-18] MEDS ORDERED: METF-713 PO (17:01)
[2022-06-18] MEDS ORDERED: SEMA0.25 SQ (17:01)
[2022-06-18] MEDS ORDERED: ALPR0.252 PO (17:01)
[2022-06-18] MEDS ORDERED: PIPERACILLIN/TAZOBACTAM 4.5 GM in DEXTROSE 5% 100 ML IV SCH (18:00)
[2022-06-18 19:00] VITALS: BP 142/72
[2022-06-18] MEDS ORDERED: CLINDAMYCIN 600MG/D5W PM 50 ML IV SCH (21:00)
[2022-06-19] MEDS ORDERED: VANCOMYCIN 1,000 MG in NACL 0.9% 250 ML IV SCH (04:00)
== END 2022-06-18 19:30 | disposition left against medical advice (07) | DRG 344 ==
LOC: MED 13:58 → MMU 15:58
PROVIDERS: ADMIT Internal Medicine; ATTEND Internal Medicine
DX: E11.69 Type 2 diabetes mellitus with other specified complication (principal); M86.8X7 Other osteomyelitis, ankle and foot; A48.0 Gas gangrene; E11.621 Type 2 diabetes mellitus with foot ulcer; E11.52 Type 2 diabetes mellitus with diabetic peripheral angiopathy with gangrene; E11.40 Type 2 diabetes mellitus with diabetic neuropathy, unspecified; L97.519 Non-pressure chronic ulcer of other part of right foot with unspecified severity; L03.115 Cellulitis of right lower limb; E78.5 Hyperlipidemia, unspecified; J45.909 Unspecified asthma, uncomplicated; M10.9 Gout, unspecified; Z53.29 Procedure and treatment not carried out because of patient's decision for other reasons; I10 Essential (primary) hypertension; Z87.891 Personal history of nicotine dependence
CPT/HCPCS: 36415; 73030; 73630; 80053; 83036; 83605; 85025; 85651; 86140; 87040; 96361; 96365; 96368; 96372; 96375; 99291; J0696; J1815; J2270; J3370; J3490; J7030; J7060

== ENCOUNTER 2023-05-14 01:59 | Inpatient (IN) | payer OTHER ==
[~2023-05-14] VITALS: Ht 180.3 cm; Wt 93.9 kg
[~2023-05-14 01:59] MED LIST changes: +ALBU0.0912 IH; +ALPR0.252 PO; +LISI2.5T12 PO; +METF-713 PO; +SEMA0.25 SQ
[2023-05-14 02:20] VITALS: BP 145/79; PULSE 98; RESP 16; TEMP 97.4; O2SAT 97
[2023-05-14] MEDS ORDERED: NACL 0.9% 1,000 ML IV ONE ×2 (03:25→04:25)
[2023-05-14 03:55] LABS: BASOPHILS # (AUTO) 0.1 K/uL (0.00-0.22); BASOPHILS % (AUTO) 0.6 % (0.0-2.0); EOSINOPHILS # (AUTO) 0.2 K/uL (0-0.4); EOSINOPHILS % (AUTO) 1.5 % (0.0-4.0); HEMATOCRIT 38.6 % (36-52); HEMOGLOBIN 12.5 g/dL (12.0-18.0); LYMPHOCYTES # (AUTO) 2.4 K/uL (2.0-11.5); LYMPHOCYTES % (AUTO) 21.3 % (20.5-51.1); MEAN CORPUSCULAR HEMOGLOBIN 25 pg (27-31); MEAN CORPUSCULAR HGB CONC 32 g/dL (33-37); MEAN CORPUSCULAR VOLUME 78.6 fL (80-94); MONOCYTES # (AUTO) 0.8 K/uL (0.8-1.0); MONOCYTES % (AUTO) 6.7 % (1.7-9.3); NEUTROPHILS # (AUTO) 7.8 K/uL (1.8-7.7); NEUTROPHILS % (AUTO) 69.9 % (42.2-75.2); PLATELET COUNT (AUTO) 381 K/uL (140-450); RED BLOOD CELL COUNT(AUTO) 4.92 MIL/uL (4.20-6.10); RED CELL DISTRIBUTION WIDTH 15.9 % (11.6-13.7); WHITE BLOOD COUNT (AUTO) 11.2 K/uL (4.8-10.8)
[2023-05-14] MEDS ORDERED: VANCOMYCIN 1,000 MG in DEXTROSE 5% 250 ML IV ONE (04:25)
[2023-05-14] MEDS ORDERED: PIPERACILLIN/TAZOBACTAM 3.375 GM in DEXTROSE 5% 50 ML IV ONE (04:25)
[2023-05-14 04:32] LABS: ANION GAP 11.8 (8-16); CARBON DIOXIDE 29.2 mmol/L (21-32)
[2023-05-14 04:33] LABS: CALCIUM 9.2 mg/dL (8.5-10.1); CREATININE 1.1 mg/dL (0.6-1.3); TOTAL BILIRUBIN 0.4 mg/dL (0.0-1.0)
[2023-05-14 04:34] LABS: TOTAL PROTEIN, SERUM 9.6 g/dL (6.4-8.2)
[2023-05-14 04:35] LABS: ALBUMIN 2.7 g/dL (3.4-5.0)
[2023-05-14] MEDS ORDERED: INSULIN REGULAR, HUMAN 100 UNIT/ML VIAL IV ONE (04:40)
[2023-05-14] MEDS ORDERED: PIPERACILLIN/TAZOBACTAM 3.375 GM VIAL IV ONE (04:48)
[2023-05-14] MEDS ORDERED: ONDANSETRON 4 MG/2 ML VIAL IVP ONE (04:55)
[2023-05-14] MEDS ORDERED: MORPHINE SULFATE 4 MG/ML SYR IVP ONE (04:55)
[2023-05-14] MEDS ORDERED: VANCOMYCIN 1,000 MG VIAL ONE (05:08)
[2023-05-14] MEDS ORDERED: ONDANSETRON 4 MG/2 ML VIAL IVP PRN (05:15)
[2023-05-14] MEDS ORDERED: POTASSIUM CHLORIDE 10 MEQ TABER PO PRN (05:15)
[2023-05-14] MEDS ORDERED: HYDROcodone/APAP 5/325 MG 1 TAB TAB PO PRN (05:15)
[2023-05-14] MEDS ORDERED: ACETAMINOPHEN 325 MG TAB PO PRN (05:15)
[2023-05-14] MEDS ORDERED: VANCOMYCIN PER PHARMACY MC PRN (05:15)
[2023-05-14] MEDS ORDERED: KCL 20 MEQ IN 100 mL PREMIX 200 ML IV PRN (05:15)
[2023-05-14] MEDS ORDERED: MAG SULF 2000 MG/WATER PREMIX 50 ML IV PRN (05:15)
[2023-05-14] MEDS ORDERED: cefTRIAXone 1,000 MG VIAL ONE (07:12)
[2023-05-14] MEDS ORDERED: DEXTROSE 50% 50 ML SYR IVP PRN (08:30)
[2023-05-14] MEDS: MORPHINE SULFATE 4 MG/ML SYR IVP PRN ×2 (08:58→22:43)
[2023-05-14] MEDS: DOCUSATE SODIUM 100 MG GELCAP PO SCH (09:01)
[2023-05-14] MEDS: BLOOD GLUCOSE MONITORING 1 DEV DEV FS SCH ×3 (12:14→21:25)
[2023-05-14] MEDS: SENNA 8.6 MG TAB PO SCH ×3 (12:20→21:16)
[2023-05-14] MEDS ORDERED: LACTULOSE 20 GM/30 ML UDC PO PRN (12:20)
[2023-05-14] MEDS: INSULIN LISPRO SLIDING SCALE 100 UNITS/ML VIAL SUBQ PRN ×3 (15:44→21:27)
[2023-05-14] MEDS: VANCOMYCIN 1,000 MG in NACL 0.9% 250 ML IV SCH ×2 (17:00→18:33)
[2023-05-14 17:30] VITALS: PULSE 90; RESP 14; O2SAT 94
[2023-05-14 20:00] VITALS: BP 125/76; PULSE 84; RESP 18; TEMP 98; O2SAT 96
[2023-05-14] MEDS: PIPERACILLIN/TAZOBACTAM 3.375 GM in DEXTROSE 5% 50 ML IV SCH (21:03)
[2023-05-15 04:00] VITALS: BP 128/63; PULSE 86; RESP 18; TEMP 98.2; O2SAT 95
[2023-05-15] MEDS: MORPHINE SULFATE 4 MG/ML SYR IVP PRN ×3 (04:10→23:54)
[2023-05-15] MEDS: PIPERACILLIN/TAZOBACTAM 3.375 GM in DEXTROSE 5% 50 ML IV SCH ×5 (04:10→23:55)
[2023-05-15] MEDS: BLOOD GLUCOSE MONITORING 1 DEV DEV FS SCH ×4 (07:33→21:00)
[2023-05-15] MEDS: INSULIN LISPRO SLIDING SCALE 100 UNITS/ML VIAL SUBQ PRN ×4 (07:38→22:10)
[2023-05-15 08:00] VITALS: BP 122/62; PULSE 84; RESP 20; TEMP 98; TEMP 98.3; O2SAT 94; O2SAT 96
[2023-05-15] MEDS: DOCUSATE SODIUM 100 MG GELCAP PO SCH (09:04)
[2023-05-15] MEDS: SENNA 8.6 MG TAB PO SCH ×2 (09:04→22:00)
[2023-05-15] MEDS: VANCOMYCIN 1,000 MG in NACL 0.9% 250 ML IV SCH ×2 (09:04→22:02)
[2023-05-15] MEDS: ALPRAZolam 0.25 MG TAB PO SCH (09:05)
[2023-05-15] MEDS: traMADol 50 MG TAB PO SCH ×3 (09:05→16:57)
[2023-05-15 11:54] LABS: BASOPHILS % (AUTO) 0.2 % (0.0-2.0); EOSINOPHILS # (AUTO) 0.1 K/uL (0-0.4); EOSINOPHILS % (AUTO) 1.1 % (0.0-4.0); HEMATOCRIT 35.5 % (36-52); HEMOGLOBIN 11.6 g/dL (12.0-18.0); LYMPHOCYTES # (AUTO) 2.2 K/uL (2.0-11.5); LYMPHOCYTES % (AUTO) 19.9 % (20.5-51.1); MEAN CORPUSCULAR HEMOGLOBIN 25 pg (27-31); MEAN CORPUSCULAR HGB CONC 33 g/dL (33-37); MEAN CORPUSCULAR VOLUME 77.3 fL (80-94); MONOCYTES # (AUTO) 0.7 K/uL (0.8-1.0); MONOCYTES % (AUTO) 6.4 % (1.7-9.3); NEUTROPHILS # (AUTO) 8.1 K/uL (1.8-7.7); NEUTROPHILS % (AUTO) 72.4 % (42.2-75.2); PLATELET COUNT (AUTO) 410 K/uL (140-450); RED BLOOD CELL COUNT(AUTO) 4.59 MIL/uL (4.20-6.10); RED CELL DISTRIBUTION WIDTH 15.1 % (11.6-13.7); WHITE BLOOD COUNT (AUTO) 11.2 K/uL (4.8-10.8)
[2023-05-15 12:00] VITALS: BP 122/62; PULSE 84; RESP 20; TEMP 98.3; O2SAT 96
[2023-05-15 12:01] LABS: ANION GAP 9.2 (8-16); CALCIUM 8.8 mg/dL (8.5-10.1); CARBON DIOXIDE 29.1 mmol/L (21-32); CREATININE 0.8 mg/dL (0.6-1.3); POTASSIUM 4.3 mmol/L (3.5-5.1)
[2023-05-15 12:05] LABS: MAGNESIUM 1.7 mg/dL (1.8-2.4); PHOSPHORUS 3.3 mg/dL (2.5-4.9)
[2023-05-15 16:00] VITALS: BP 122/79; PULSE 100; RESP 20; TEMP 97; O2SAT 93
[2023-05-15] MEDS: MAGNESIUM OXIDE 400 MG TAB PO PRN (18:50)
[2023-05-15 20:00] VITALS: BP 125/85; PULSE 99; RESP 18; TEMP 97; O2SAT 99
[2023-05-15] MEDS ORDERED: VANCOMYCIN 1,000 MG VIAL ONE (20:22)
[2023-05-16 04:00] VITALS: BP 106/69; PULSE 90; RESP 18; TEMP 97; O2SAT 98
[2023-05-16] MEDS: PIPERACILLIN/TAZOBACTAM 3.375 GM in DEXTROSE 5% 50 ML IV SCH ×4 (05:10→23:51)
[2023-05-16] MEDS: MORPHINE SULFATE 4 MG/ML SYR IVP PRN ×2 (06:39→11:57)
[2023-05-16] MEDS: BLOOD GLUCOSE MONITORING 1 DEV DEV FS SCH ×4 (06:39→21:36)
[2023-05-16] MEDS: INSULIN LISPRO SLIDING SCALE 100 UNITS/ML VIAL SUBQ PRN ×4 (06:39→21:35)
[2023-05-16 08:00] VITALS: BP 129/55; PULSE 85; RESP 18; TEMP 97.5; O2SAT 98
[2023-05-16 08:52] VITALS: TEMP 98.1
[2023-05-16 08:53] VITALS: PULSE 89; RESP 19; O2SAT 98
[2023-05-16 09:47] LABS: BASOPHILS % (AUTO) 0.4 % (0.0-2.0); EOSINOPHILS # (AUTO) 0.2 K/uL (0-0.4); EOSINOPHILS % (AUTO) 1.8 % (0.0-4.0); HEMATOCRIT 34.8 % (36-52); HEMOGLOBIN 11.3 g/dL (12.0-18.0); LYMPHOCYTES # (AUTO) 1.9 K/uL (2.0-11.5); LYMPHOCYTES % (AUTO) 18.5 % (20.5-51.1); MEAN CORPUSCULAR HEMOGLOBIN 26 pg (27-31); MEAN CORPUSCULAR HGB CONC 33 g/dL (33-37); MEAN CORPUSCULAR VOLUME 78.5 fL (80-94); MONOCYTES # (AUTO) 0.7 K/uL (0.8-1.0); MONOCYTES % (AUTO) 6.6 % (1.7-9.3); NEUTROPHILS # (AUTO) 7.6 K/uL (1.8-7.7); NEUTROPHILS % (AUTO) 72.7 % (42.2-75.2); PLATELET COUNT (AUTO) 414 K/uL (140-450); RED BLOOD CELL COUNT(AUTO) 4.43 MIL/uL (4.20-6.10); RED CELL DISTRIBUTION WIDTH 15.6 % (11.6-13.7); WHITE BLOOD COUNT (AUTO) 10.5 K/uL (4.8-10.8)
[2023-05-16] MEDS: VANCOMYCIN 1,000 MG in NACL 0.9% 250 ML IV SCH (09:57)
[2023-05-16] MEDS: DOCUSATE SODIUM 100 MG GELCAP PO SCH (09:57)
[2023-05-16] MEDS: ALPRAZolam 0.25 MG TAB PO SCH (09:58)
[2023-05-16] MEDS: SENNA 8.6 MG TAB PO SCH ×2 (09:58→21:23)
[2023-05-16] MEDS: traMADol 50 MG TAB PO SCH ×3 (09:58→17:21)
[2023-05-16 10:02] LABS: ANION GAP 9.9 (8-16); CALCIUM 9.1 mg/dL (8.5-10.1); CARBON DIOXIDE 30.1 mmol/L (21-32); CREATININE 0.9 mg/dL (0.6-1.3)
[2023-05-16 10:06] LABS: MAGNESIUM 1.7 mg/dL (1.8-2.4)
[2023-05-16] MEDS: VANCOMYCIN 1.25GM PREMIX 250 ML IV SCH ×2 (12:04→21:23)
[2023-05-16 16:00] VITALS: BP 123/78; PULSE 77; RESP 20; TEMP 97; O2SAT 98
[2023-05-16] MEDS ORDERED: VANCOMYCIN 1.25GM PREMIX 250 ML IV SCH (17:00)
[2023-05-16 20:00] VITALS: BP 120/72; PULSE 75; PULSE 97; RESP 17; TEMP 97.5; O2SAT 97
[2023-05-17] MEDS: VANCOMYCIN 1.25GM PREMIX 250 ML IV SCH ×3 (03:43→20:10)
[2023-05-17] MEDS: MORPHINE SULFATE 4 MG/ML SYR IVP PRN ×4 (03:43→22:05)
[2023-05-17 04:00] VITALS: BP 113/60; PULSE 80; RESP 17; TEMP 97; O2SAT 96
[2023-05-17] MEDS: PIPERACILLIN/TAZOBACTAM 3.375 GM in DEXTROSE 5% 50 ML IV SCH ×3 (06:02→17:00)
[2023-05-17] MEDS: INSULIN LISPRO SLIDING SCALE 100 UNITS/ML VIAL SUBQ PRN ×4 (06:31→20:13)
[2023-05-17] MEDS: BLOOD GLUCOSE MONITORING 1 DEV DEV FS SCH ×4 (06:32→20:11)
[2023-05-17 06:50] LABS: MAGNESIUM 1.7 mg/dL (1.8-2.4); PHOSPHORUS 3.9 mg/dL (2.5-4.9)
[2023-05-17 06:51] LABS: ANION GAP 10.5 (8-16); CARBON DIOXIDE 28.8 mmol/L (21-32); CREATININE 0.8 mg/dL (0.6-1.3); POTASSIUM 4.3 mmol/L (3.5-5.1)
[2023-05-17 07:05] LABS: BASOPHILS # (AUTO) 0.1 K/uL (0.00-0.22); BASOPHILS % (AUTO) 0.9 % (0.0-2.0); EOSINOPHILS # (AUTO) 0.3 K/uL (0-0.4); EOSINOPHILS % (AUTO) 2.2 % (0.0-4.0); HEMATOCRIT 36.7 % (36-52); HEMOGLOBIN 11.9 g/dL (12.0-18.0); LYMPHOCYTES # (AUTO) 3.5 K/uL (2.0-11.5); MEAN CORPUSCULAR HEMOGLOBIN 25 pg (27-31); MEAN CORPUSCULAR HGB CONC 33 g/dL (33-37); MEAN CORPUSCULAR VOLUME 78.2 fL (80-94); MONOCYTES # (AUTO) 0.6 K/uL (0.8-1.0); MONOCYTES % (AUTO) 4.7 % (1.7-9.3); NEUTROPHILS # (AUTO) 7.9 K/uL (1.8-7.7); PLATELET COUNT (AUTO) 406 K/uL (140-450); RED BLOOD CELL COUNT(AUTO) 4.69 MIL/uL (4.20-6.10); RED CELL DISTRIBUTION WIDTH 15.5 % (11.6-13.7); WHITE BLOOD COUNT (AUTO) 12.3 K/uL (4.8-10.8)
[2023-05-17 07:14] LABS: LYMPHOCYTES % (AUTO) 28.5 % (20.5-51.1); NEUTROPHILS % (AUTO) 63.7 % (42.2-75.2)
[2023-05-17] MEDS: DOCUSATE SODIUM 100 MG GELCAP PO SCH (08:25)
[2023-05-17] MEDS: traMADol 50 MG TAB PO SCH ×3 (08:25→16:59)
[2023-05-17] MEDS: SENNA 8.6 MG TAB PO SCH ×2 (08:25→20:11)
[2023-05-17] MEDS: ALPRAZolam 0.25 MG TAB PO SCH (08:25)
[2023-05-17 08:39] VITALS: BP 135/78; PULSE 75; RESP 17; TEMP 97; O2SAT 99
[2023-05-17 08:57] VITALS: TEMP 97
[2023-05-17 08:58] VITALS: PULSE 75; RESP 18; O2SAT 99
[2023-05-17 15:47] VITALS: BP 131/80; PULSE 85; RESP 18; TEMP 98; O2SAT 98
[2023-05-17] MEDS: MAGNESIUM OXIDE 400 MG TAB PO PRN (18:29)
[2023-05-17 20:00] VITALS: PULSE 74; RESP 17; TEMP 97.4; O2SAT 91
[2023-05-18] VITALS: BP 120/77; PULSE 74; RESP 17; TEMP 97.4; O2SAT 91
[2023-05-18] MEDS: PIPERACILLIN/TAZOBACTAM 3.375 GM in DEXTROSE 5% 50 ML IV SCH ×4 (00:06→17:00)
[2023-05-18] MEDS: VANCOMYCIN 1.25GM PREMIX 250 ML IV SCH ×3 (04:13→20:47)
[2023-05-18 04:32] LABS: BASOPHILS # (AUTO) 0.1 K/uL (0.00-0.22); BASOPHILS % (AUTO) 0.7 % (0.0-2.0); EOSINOPHILS # (AUTO) 0.2 K/uL (0-0.4); EOSINOPHILS % (AUTO) 2.7 % (0.0-4.0); HEMATOCRIT 35.4 % (36-52); HEMOGLOBIN 11.4 g/dL (12.0-18.0); LYMPHOCYTES # (AUTO) 2.6 K/uL (2.0-11.5); LYMPHOCYTES % (AUTO) 28.5 % (20.5-51.1); MEAN CORPUSCULAR HEMOGLOBIN 25 pg (27-31); MEAN CORPUSCULAR HGB CONC 32 g/dL (33-37); MEAN CORPUSCULAR VOLUME 78.7 fL (80-94); MONOCYTES # (AUTO) 0.6 K/uL (0.8-1.0); MONOCYTES % (AUTO) 6.6 % (1.7-9.3); NEUTROPHILS # (AUTO) 5.6 K/uL (1.8-7.7); NEUTROPHILS % (AUTO) 61.5 % (42.2-75.2); PLATELET COUNT (AUTO) 426 K/uL (140-450); RED CELL DISTRIBUTION WIDTH 15.7 % (11.6-13.7); WHITE BLOOD COUNT (AUTO) 9.1 K/uL (4.8-10.8)
[2023-05-18] MEDS: MORPHINE SULFATE 4 MG/ML SYR IVP PRN ×4 (04:34→20:53)
[2023-05-18 04:45] LABS: ANION GAP 10.2 (8-16); CALCIUM 9.2 mg/dL (8.5-10.1); CARBON DIOXIDE 31.9 mmol/L (21-32); CREATININE 0.9 mg/dL (0.6-1.3); INR 0.98 (0.8-1.2); POTASSIUM 4.1 mmol/L (3.5-5.1); PROTHROMBIN TIME 10.3 secs (10.8-13.4)
[2023-05-18 04:50] LABS: MAGNESIUM 1.7 mg/dL (1.8-2.4); PHOSPHORUS 4.6 mg/dL (2.5-4.9)
[2023-05-18] MEDS: BLOOD GLUCOSE MONITORING 1 DEV DEV FS SCH ×4 (06:36→20:51)
[2023-05-18 07:14] LABS: APPEARANCE,URINE CLEAR (CLEAR); BILIRUBIN,URINE NEGATIVE (NEGATIVE); BLOOD, URINE 2+ (NEGATIVE); COLOR,URINE YELLOW (YELLOW); LEUKOCYTE ESTERASE ,URINE NEGATIVE (NEGATIVE); NITRITE, URINE NEGATIVE (NEGATIVE); PROTEIN,URINE 1+ (NEGATIVE); UGLUCOSE NEGATIVE (NEGATIVE); UROBILINOGEN,URINE 0.2 EU/dL (0.2 - 1)
[2023-05-18 07:28] LABS: BACTERIA,URINE 0-2 /HPF (None Seen); MUCUS,URINE None Seen /LPF (None Seen); SQUAMOUS EPITHELIAL CELL,UR 0-3 (FEW) /LPF (0-3 (FEW)); WBC,URINE 0 /HPF (0-5); YEAST,URINE None Seen /HPF (None Seen)
[2023-05-18 07:47] VITALS: TEMP 98
[2023-05-18] MEDS: DOCUSATE SODIUM 100 MG GELCAP PO SCH (08:22)
[2023-05-18] MEDS: SENNA 8.6 MG TAB PO SCH ×2 (08:23→20:47)
[2023-05-18] MEDS: ALPRAZolam 0.25 MG TAB PO SCH (08:23)
[2023-05-18] MEDS: traMADol 50 MG TAB PO SCH ×3 (08:23→16:58)
[2023-05-18 08:40] VITALS: BP 138/82; PULSE 92; RESP 20; TEMP 98.2; O2SAT 100
[2023-05-18 08:41] VITALS: PULSE 92; RESP 20; O2SAT 100
[2023-05-18] MEDS: INSULIN LISPRO SLIDING SCALE 100 UNITS/ML VIAL SUBQ PRN ×2 (15:44→20:50)
[2023-05-18 16:27] VITALS: BP 117/85; PULSE 82; RESP 20; TEMP 98.1; O2SAT 98
[2023-05-18 20:00] VITALS: BP 148/88; PULSE 77; RESP 19; TEMP 97.8; O2SAT 98
[2023-05-19] MEDS: PIPERACILLIN/TAZOBACTAM 3.375 GM in DEXTROSE 5% 50 ML IV SCH ×4 (00:32→17:56)
[2023-05-19] MEDS: MAGNESIUM OXIDE 400 MG TAB PO PRN ×2 (00:33→10:19)
[2023-05-19] MEDS: MORPHINE SULFATE 4 MG/ML SYR IVP PRN ×5 (01:28→19:31)
[2023-05-19 04:00] VITALS: BP 129/76; PULSE 80; RESP 18; TEMP 98.1; O2SAT 98
[2023-05-19] MEDS: VANCOMYCIN 1.25GM PREMIX 250 ML IV SCH ×2 (04:10→12:42)
[2023-05-19 04:15] LABS: BASOPHILS # (AUTO) 0.1 K/uL (0.00-0.22); BASOPHILS % (AUTO) 0.7 % (0.0-2.0); EOSINOPHILS # (AUTO) 0.2 K/uL (0-0.4); EOSINOPHILS % (AUTO) 2.8 % (0.0-4.0); HEMATOCRIT 34.6 % (36-52); HEMOGLOBIN 11.3 g/dL (12.0-18.0); LYMPHOCYTES # (AUTO) 2.7 K/uL (2.0-11.5); LYMPHOCYTES % (AUTO) 30.7 % (20.5-51.1); MEAN CORPUSCULAR HEMOGLOBIN 25 pg (27-31); MEAN CORPUSCULAR HGB CONC 33 g/dL (33-37); MEAN CORPUSCULAR VOLUME 77.6 fL (80-94); MONOCYTES # (AUTO) 0.6 K/uL (0.8-1.0); NEUTROPHILS # (AUTO) 5.2 K/uL (1.8-7.7); NEUTROPHILS % (AUTO) 58.8 % (42.2-75.2); PLATELET COUNT (AUTO) 413 K/uL (140-450); RED BLOOD CELL COUNT(AUTO) 4.46 MIL/uL (4.20-6.10); RED CELL DISTRIBUTION WIDTH 15.6 % (11.6-13.7); WHITE BLOOD COUNT (AUTO) 8.9 K/uL (4.8-10.8)
[2023-05-19 04:23] LABS: ANION GAP 8.3 (8-16); CALCIUM 9.1 mg/dL (8.5-10.1); CARBON DIOXIDE 32.7 mmol/L (21-32); CREATININE 0.8 mg/dL (0.6-1.3)
[2023-05-19 04:26] LABS: INR 1.04 (0.8-1.2); PARTIAL THROMBOPLASTIN TIME 33.1 secs (22-35.6); PROTHROMBIN TIME 10.9 secs (10.8-13.4)
[2023-05-19 04:27] LABS: MAGNESIUM 1.7 mg/dL (1.8-2.4); PHOSPHORUS 4.1 mg/dL (2.5-4.9)
[2023-05-19] MEDS: BLOOD GLUCOSE MONITORING 1 DEV DEV FS SCH ×4 (07:04→22:12)
[2023-05-19] MEDS ORDERED: BUPIVACAINE-MPF 0.25% 30 ML VIAL INJ ONE (07:34)
[2023-05-19] MEDS ORDERED: LIDOCAINE/EPI MPF 1%1:200000 30 ML VIAL INJ ONE (07:34)
[2023-05-19] MEDS ORDERED: LIDOCAINE 2% 1000 MG/50 ML VIAL INJ ONE (07:46)
[2023-05-19] MEDS ORDERED: SEVOFLURANE 250 ML BTL INH ONE (07:55)
[2023-05-19] MEDS ORDERED: PROPOFOL 200 MG/20 ML VIAL IV ONE (07:55)
[2023-05-19] MEDS ORDERED: MIDAZOLAM 2 MG/2 ML VIAL ONE (07:57)
[2023-05-19] MEDS ORDERED: fentaNYL citrate 0.05 MG/ML VIAL ONE (07:58)
[2023-05-19 08:00] VITALS: BP 138/82; PULSE 92; RESP 20; TEMP 98.2; O2SAT 100
[2023-05-19] MEDS: SENNA 8.6 MG TAB PO SCH ×2 (09:00→22:09)
[2023-05-19] MEDS: ALPRAZolam 0.25 MG TAB PO SCH (10:19)
[2023-05-19] MEDS: DOCUSATE SODIUM 100 MG GELCAP PO SCH (10:19)
[2023-05-19] MEDS: traMADol 50 MG TAB PO SCH ×3 (10:20→16:39)
[2023-05-19] MEDS: INSULIN LISPRO SLIDING SCALE 100 UNITS/ML VIAL SUBQ PRN ×3 (13:22→22:12)
[2023-05-19 16:00] VITALS: BP 141/80; PULSE 102; RESP 20; TEMP 97.3; O2SAT 96
[2023-05-19] MEDS: INSULIN LANTUS 100 UNITS/ML 10 ML VIAL SUBQ SCH (16:39)
[2023-05-19] MEDS: HYDROmorphone 1 MG/ML AMP IVP PRN (16:39)
[2023-05-19 20:00] VITALS: PULSE 94; RESP 18; TEMP 97.9; O2SAT 97
[2023-05-20] VITALS: BP 149/81; PULSE 94; RESP 18; TEMP 97.9; O2SAT 97
[2023-05-20] MEDS: HYDROmorphone 1 MG/ML AMP IVP PRN ×3 (00:14→12:46)
[2023-05-20] MEDS: MORPHINE SULFATE 4 MG/ML SYR IVP PRN ×3 (03:59→14:58)
[2023-05-20] MEDS: PIPERACILLIN/TAZOBACTAM 3.375 GM in DEXTROSE 5% 50 ML IV SCH ×2 (05:20→12:40)
[2023-05-20] MEDS: INSULIN LISPRO SLIDING SCALE 100 UNITS/ML VIAL SUBQ PRN ×2 (06:31→14:57)
[2023-05-20] MEDS: BLOOD GLUCOSE MONITORING 1 DEV DEV FS SCH ×2 (06:33→11:52)
[2023-05-20 08:00] VITALS: BP 147/74; PULSE 83; PULSE 94; RESP 18; RESP 22; TEMP 97.8; O2SAT 96
[2023-05-20] MEDS: traMADol 50 MG TAB PO SCH ×2 (09:00→13:00)
[2023-05-20] MEDS ORDERED: NICOTINE TRANSD SYS 14 MG/24 HR PATCH TD SCH (09:00)
[2023-05-20] MEDS: SENNA 8.6 MG TAB PO SCH (09:19)
[2023-05-20] MEDS: DOCUSATE SODIUM 100 MG GELCAP PO SCH (09:19)
[2023-05-20] MEDS: INSULIN LANTUS 100 UNITS/ML 10 ML VIAL SUBQ SCH (09:20)
[2023-05-20] MEDS: ALPRAZolam 0.25 MG TAB PO SCH (09:50)
[2023-05-20] MEDS ORDERED: OXYC5TAB4 PO (15:29)
== END 2023-05-20 15:55 | disposition home or self-care (01) | DRG 710 ==
LOC: MED 01:59 → MMU 05:14 → MTU 16:56 → MMU 05-15 15:05
PROVIDERS: ADMIT Internal Medicine; ATTEND Internal Medicine
PROC: 05H433Z Insertion of Infusion Device into Left Innominate Vein, Percutaneous Approach (ICD-10-PCS; 2023-05-15)
PROC: B54NZZA Ultrasonography of Left Upper Extremity Veins, Guidance (ICD-10-PCS; 2023-05-15)
PROC: 0QBN0ZZ Excision of Right Metatarsal, Open Approach (ICD-10-PCS; principal; 2023-05-19 07:30)
DX: A41.9 Sepsis, unspecified organism (principal); E43 Unspecified severe protein-calorie malnutrition; M00.9 Pyogenic arthritis, unspecified; E87.20 Acidosis, unspecified; L97.519 Non-pressure chronic ulcer of other part of right foot with unspecified severity; E11.621 Type 2 diabetes mellitus with foot ulcer; M86.9 Osteomyelitis, unspecified; I11.0 Hypertensive heart disease with heart failure; I50.9 Heart failure, unspecified; E11.69 Type 2 diabetes mellitus with other specified complication; M54.9 Dorsalgia, unspecified; G89.29 Other chronic pain; E11.65 Type 2 diabetes mellitus with hyperglycemia; J44.9 Chronic obstructive pulmonary disease, unspecified; Z68.28 Body mass index [BMI] 28.0-28.9, adult; Z87.891 Personal history of nicotine dependence
CPT/HCPCS: 36415; 71045; 73590; 73630; 80048; 80053; 80202; 81001; 82803; 82948; 83605; 83735; 84100; 85025; 85610; 85651; 85730; 86140; 87040; 87070; 87075; 87081; 87186; 87205; 88304; 88305; 88311; 93005; 93971; 96361; 96365; 96367; 96375; 99291; J0696; J1170; J1644; J1815; J2001; J2250; J2270; J2405; J2543; J2704; J3010; J3370; J3372; J3490; J7030; J7060; Q0092

== ENCOUNTER 2023-07-16 21:34 | Inpatient (IN) | payer OTHER ==
[~2023-07-16] VITALS: Ht 180.3 cm; Wt 95.3 kg
[~2023-07-16 21:34] MED LIST changes: -CEPH-588 PO; -HYDR-5080 PO; -METF-346 PO; +OXYC5TAB4 PO
[2023-07-16 21:59] VITALS: BP 154/85; PULSE 132; RESP 14; TEMP 98.7; O2SAT 94
[2023-07-16] MEDS ORDERED: PIPERACILLIN/TAZOBACTAM 3.375 GM in DEXTROSE 5% 50 ML IV ONE (22:45)
[2023-07-16] MEDS ORDERED: NACL 0.9% 1,000 ML IV ONE (22:45)
[2023-07-16] MEDS ORDERED: MORPHINE SULFATE 4 MG/ML SYR IVP ONE (22:45)
[2023-07-16] MEDS ORDERED: PIPERACILLIN/TAZOBACTAM 3.375 GM VIAL IV ONE (23:07)
[2023-07-16 23:32] LABS: BASOPHILS # (AUTO) 0.1 K/uL (0.00-0.22); BASOPHILS % (AUTO) 0.4 % (0.0-2.0); EOSINOPHILS % (AUTO) 0.2 % (0.0-4.0); HEMATOCRIT 30.7 % (36-52); HEMOGLOBIN 10.1 g/dL (12.0-18.0); LYMPHOCYTES # (AUTO) 1.3 K/uL (2.0-11.5); LYMPHOCYTES % (AUTO) 7.9 % (20.5-51.1); MEAN CORPUSCULAR HEMOGLOBIN 24 pg (27-31); MEAN CORPUSCULAR HGB CONC 33 g/dL (33-37); MEAN CORPUSCULAR VOLUME 73.9 fL (80-94); MONOCYTES # (AUTO) 0.8 K/uL (0.8-1.0); MONOCYTES % (AUTO) 5.1 % (1.7-9.3); NEUTROPHILS # (AUTO) 14.3 K/uL (1.8-7.7); NEUTROPHILS % (AUTO) 86.4 % (42.2-75.2); PLATELET COUNT (AUTO) 522 K/uL (140-450); RED BLOOD CELL COUNT(AUTO) 4.16 MIL/uL (4.20-6.10); RED CELL DISTRIBUTION WIDTH 17.3 % (11.6-13.7); WHITE BLOOD COUNT (AUTO) 16.6 K/uL (4.8-10.8)
[2023-07-16 23:47] LABS: ANION GAP 13.4 (8-16); CALCIUM 8.7 mg/dL (8.5-10.1); CARBON DIOXIDE 26.3 mmol/L (21-32); CREATININE 0.9 mg/dL (0.6-1.3); POTASSIUM 3.7 mmol/L (3.5-5.1)
[2023-07-16 23:56] LABS: LACTIC ACID 1.8 mmol/L (0.4-2.0)
[2023-07-17] MEDS ORDERED: ONDANSETRON 4 MG/2 ML VIAL IVP PRN (00:30)
[2023-07-17] MEDS ORDERED: NACL 0.9% 1,000 ML IV SCH (00:30)
[2023-07-17] MEDS ORDERED: POTASSIUM CHLORIDE 10 MEQ TABER PO PRN (00:30)
[2023-07-17] MEDS ORDERED: MORPHINE SULFATE 4 MG/ML SYR IVP PRN (00:30)
[2023-07-17] MEDS ORDERED: ACETAMINOPHEN 325 MG TAB PO PRN (00:30)
[2023-07-17] MEDS ORDERED: KCL 20 MEQ IN 100 mL PREMIX 200 ML IV PRN (00:30)
[2023-07-17] MEDS ORDERED: HYDROcodone/APAP 5/325 MG 1 TAB TAB PO PRN (00:30)
[2023-07-17] MEDS ORDERED: MAG SULF 2000 MG/WATER PREMIX 50 ML IV PRN (00:30)
[2023-07-17] MEDS ORDERED: LORazepam 1 MG TAB PO PRN (00:30)
[2023-07-17] MEDS ORDERED: ZOLPIDEM 5 MG TAB PO PRN (00:30)
[2023-07-17] MEDS ORDERED: MORPHINE SULFATE 4 MG/ML SYR IVP ONE (01:15)
[2023-07-17 06:23] LABS: APPEARANCE,URINE CLEAR (CLEAR); BILIRUBIN,URINE 1+ (NEGATIVE); BLOOD, URINE 3+ (NEGATIVE); COLOR,URINE ORANGE (YELLOW); LEUKOCYTE ESTERASE ,URINE NEGATIVE (NEGATIVE); NITRITE, URINE NEGATIVE (NEGATIVE); PH,URINE 7.5 (5.0-9.0); PROTEIN,URINE 3+ (NEGATIVE); UGLUCOSE 3+ (NEGATIVE); UROBILINOGEN,URINE 0.2 EU/dL (0.2 - 1)
[2023-07-17 06:39] LABS: ICTOTEST POSITIVE (NEGATIVE)
[2023-07-17 06:41] LABS: BACTERIA,URINE FEW /HPF (None Seen); RBC,URINE 11-20 (MOD) /HPF (0-5); SQUAMOUS EPITHELIAL CELL,UR 0-3 (FEW) /LPF (0-3 (FEW)); WBC,URINE 0-5 /HPF (0-5)
[2023-07-17] MEDS ORDERED: VANCOMYCIN PER PHARMACY MC PRN (07:43)
[2023-07-17] MEDS ORDERED: ENOXAPARIN 40 MG/0.4 ML SYR SUBQ ONE (07:58)
[2023-07-17] MEDS ORDERED: ENOXAPARIN 40 MG/0.4 ML SYR SUBQ SCH (09:00)
[2023-07-17] MEDS ORDERED: VANCOMYCIN 1.25GM PREMIX 250 ML IV SCH (09:00)
[2023-07-17 10:32] VITALS: BP 138/71; PULSE 99; RESP 18; TEMP 98.8; O2SAT 96
[2023-07-17] MEDS ORDERED: MEROPENEM 1,000 MG in NACL 0.9% 50 ML IV SCH (13:00)
== END 2023-07-17 10:30 | disposition left against medical advice (07) | DRG 720 ==
LOC: MED 21:34 → MTU 07-17 01:12
PROVIDERS: ADMIT Internal Medicine; ATTEND Internal Medicine
DX: A41.9 Sepsis, unspecified organism (principal); E11.52 Type 2 diabetes mellitus with diabetic peripheral angiopathy with gangrene; E11.621 Type 2 diabetes mellitus with foot ulcer; I96 Gangrene, not elsewhere classified; E11.65 Type 2 diabetes mellitus with hyperglycemia; I10 Essential (primary) hypertension; J44.9 Chronic obstructive pulmonary disease, unspecified; E78.5 Hyperlipidemia, unspecified; Z53.29 Procedure and treatment not carried out because of patient's decision for other reasons; Z82.49 Family history of ischemic heart disease and other diseases of the circulatory system; Z79.899 Other long term (current) drug therapy
CPT/HCPCS: 36415; 71045; 73700; 80048; 81001; 83605; 85025; 87040; 87086; 93005; 96365; 96375; 99285; J1650; J2185; J2270; J2543; J3372; Q0092

== ENCOUNTER 2023-07-20 16:23 | Inpatient (IN) | payer OTHER ==
[~2023-07-20] VITALS: Ht 172.7 cm; Wt 81.6 kg
[2023-07-20] MEDS: NACL 0.9% 1,000 ML IV SCH (00:35)
[2023-07-20 16:56] VITALS: BP 127/72; PULSE 110; RESP 18; TEMP 98; O2SAT 98
[2023-07-20] MEDS ORDERED: PIPERACILLIN/TAZOBACTAM 3.375 GM in DEXTROSE 5% 50 ML IV ONE (17:10)
[2023-07-20] MEDS ORDERED: VANCOMYCIN 1,000 MG in DEXTROSE 5% 250 ML IV ONE (17:10)
[2023-07-20] MEDS ORDERED: NACL 0.9% 1,000 ML IV SCH (17:10)
[2023-07-20] MEDS ORDERED: MORPHINE SULFATE 4 MG/ML SYR IVP ONE (18:20)
[2023-07-20] MEDS ORDERED: NACL 0.9% 1,000 ML IV ONE ×2 (18:20→19:15)
[2023-07-20] MEDS ORDERED: ONDANSETRON 4 MG/2 ML VIAL IVP ONE (18:20)
[2023-07-20 18:26] LABS: BASOPHILS % (AUTO) 0.2 % (0.0-2.0); EOSINOPHILS # (AUTO) 0.1 K/uL (0-0.4); HEMATOCRIT 30.2 % (36-52); LYMPHOCYTES # (AUTO) 1.4 K/uL (2.0-11.5); LYMPHOCYTES % (AUTO) 10.2 % (20.5-51.1); MEAN CORPUSCULAR HEMOGLOBIN 25 pg (27-31); MEAN CORPUSCULAR HGB CONC 33 g/dL (33-37); MEAN CORPUSCULAR VOLUME 74.4 fL (80-94); MONOCYTES # (AUTO) 0.7 K/uL (0.8-1.0); MONOCYTES % (AUTO) 5.1 % (1.7-9.3); NEUTROPHILS # (AUTO) 11.6 K/uL (1.8-7.7); NEUTROPHILS % (AUTO) 83.5 % (42.2-75.2); PLATELET COUNT (AUTO) 578 K/uL (140-450); RED BLOOD CELL COUNT(AUTO) 4.06 MIL/uL (4.20-6.10); RED CELL DISTRIBUTION WIDTH 17.4 % (11.6-13.7)
[2023-07-20] MEDS ORDERED: PIPERACILLIN/TAZOBACTAM 3.375 GM VIAL IV ONE (18:42)
[2023-07-20 18:46] LABS: ANION GAP 12.8 (8-16); CALCIUM 8.8 mg/dL (8.5-10.1); CARBON DIOXIDE 29.2 mmol/L (21-32); INR 1.19 (0.8-1.2); PARTIAL THROMBOPLASTIN TIME 32.8 secs (22-35.6); PROTHROMBIN TIME 12.4 secs (10.8-13.4)
[2023-07-20 18:47] LABS: ALBUMIN 1.6 g/dL (3.4-5.0)
[2023-07-20 19:12] LABS: LACTIC ACID 3.3 mmol/L (0.4-2.0)
[2023-07-20] MEDS ORDERED: CLINDAMYCIN 900MG/D5W PM 50 ML IV ONE ×2 (19:15→23:01)
[2023-07-20] MEDS ORDERED: LORazepam 2 MG/ML VIAL IVP ONE (19:15)
[2023-07-20 19:24] LABS: BILIRUBIN,DIRECT 0.1 mg/dL (0.0-0.3)
[2023-07-20 19:40] LABS: TOTAL BILIRUBIN 0.3 mg/dL (0.0-1.0); TOTAL PROTEIN, SERUM 9.5 g/dL (6.4-8.2)
[2023-07-20 20:00] VITALS: O2SAT 97
[2023-07-20] MEDS ORDERED: MORPHINE SULFATE 2 MG/ML SYR IVP PRN (20:10)
[2023-07-20] MEDS ORDERED: HYDROcodone/APAP 5/325 MG 1 TAB TAB PO PRN (20:10)
[2023-07-20] MEDS ORDERED: MAGNESIUM OXIDE 400 MG TAB PO PRN (20:10)
[2023-07-20] MEDS ORDERED: ACETAMINOPHEN 325 MG TAB PO PRN (20:10)
[2023-07-20] MEDS ORDERED: POTASSIUM CHLORIDE 10 MEQ TABER PO PRN (20:10)
[2023-07-20] MEDS ORDERED: ONDANSETRON 4 MG/2 ML VIAL IVP PRN (20:10)
[2023-07-20] MEDS ORDERED: MAG SULF 2000 MG/WATER PREMIX 50 ML IV PRN (20:10)
[2023-07-20] MEDS ORDERED: VANCOMYCIN PER PHARMACY MC PRN (20:10)
[2023-07-20] MEDS ORDERED: KCL 20 MEQ IN 100 mL PREMIX 200 ML IV PRN (20:10)
[2023-07-20] MEDS ORDERED: INSULIN LANTUS 100 UNITS/ML 10 ML VIAL SUBQ SCH (20:20)
[2023-07-20] MEDS ORDERED: DEXTROSE 50% 50 ML SYR IVP PRN (20:20)
[2023-07-20] MEDS ORDERED: LORazepam 2 MG/ML VIAL ONE (20:49)
[2023-07-20] MEDS ORDERED: VANCOMYCIN 1,000 MG VIAL ONE (21:23)
[2023-07-20] MEDS: BLOOD GLUCOSE MONITORING 1 DEV DEV FS SCH (22:13)
[2023-07-21] MEDS ORDERED: PIPERACILLIN/TAZOBACTAM 3.375 GM VIAL IV ONE ×2 (00:24→06:02)
[2023-07-21] MEDS: PIPERACILLIN/TAZOBACTAM 3.375 GM in DEXTROSE 5% 50 ML IV SCH ×2 (00:38→06:08)
[2023-07-21 01:43] LABS: APPEARANCE,URINE CLEAR (CLEAR); BILIRUBIN,URINE NEGATIVE (NEGATIVE); BLOOD, URINE 3+ (NEGATIVE); COLOR,URINE YELLOW (YELLOW); LEUKOCYTE ESTERASE ,URINE NEGATIVE (NEGATIVE); NITRITE, URINE NEGATIVE (NEGATIVE); PROTEIN,URINE 1+ (NEGATIVE); UGLUCOSE 3+ (NEGATIVE); UROBILINOGEN,URINE 0.2 EU/dL (0.2 - 1)
[2023-07-21 01:53] LABS: BACTERIA,URINE 10-30 (MOD) /HPF (None Seen); RBC,URINE 20-50 /HPF (0-5); WBC,URINE 0-5 /HPF (0-5)
[2023-07-21 01:54] LABS: MUCUS,URINE 2+ /LPF (None Seen); SQUAMOUS EPITHELIAL CELL,UR 0-3 (FEW) /LPF (0-3 (FEW))
[2023-07-21 01:58] VITALS: O2SAT 97
[2023-07-21 04:08] VITALS: O2SAT 97
[2023-07-21 06:18] VITALS: O2SAT 97
[2023-07-21 06:52] LABS: BASOPHILS % (AUTO) 0.1 % (0.0-2.0); EOSINOPHILS # (AUTO) 0.1 K/uL (0-0.4); EOSINOPHILS % (AUTO) 0.9 % (0.0-4.0); HEMATOCRIT 29.2 % (36-52); HEMOGLOBIN 9.5 g/dL (12.0-18.0); LYMPHOCYTES # (AUTO) 1.1 K/uL (2.0-11.5); LYMPHOCYTES % (AUTO) 8.1 % (20.5-51.1); MEAN CORPUSCULAR HEMOGLOBIN 24 pg (27-31); MEAN CORPUSCULAR HGB CONC 32 g/dL (33-37); MEAN CORPUSCULAR VOLUME 73.9 fL (80-94); MONOCYTES # (AUTO) 0.9 K/uL (0.8-1.0); MONOCYTES % (AUTO) 6.1 % (1.7-9.3); NEUTROPHILS # (AUTO) 11.8 K/uL (1.8-7.7); NEUTROPHILS % (AUTO) 84.8 % (42.2-75.2); PLATELET COUNT (AUTO) 537 K/uL (140-450); RED BLOOD CELL COUNT(AUTO) 3.95 MIL/uL (4.20-6.10); RED CELL DISTRIBUTION WIDTH 17.2 % (11.6-13.7)
[2023-07-21 07:07] LABS: INR 1.06 (0.8-1.2); PARTIAL THROMBOPLASTIN TIME 31.7 secs (22-35.6); PROTHROMBIN TIME 11.1 secs (10.8-13.4)
[2023-07-21] MEDS: BLOOD GLUCOSE MONITORING 1 DEV DEV FS SCH ×2 (07:41→09:50)
[2023-07-21] MEDS: INSULIN LISPRO SLIDING SCALE 100 UNITS/ML VIAL SUBQ PRN ×2 (08:31→12:06)
[2023-07-21] MEDS: NACL 0.9% 1,000 ML IV SCH (08:48)
[2023-07-21 09:10] LABS: ALBUMIN 1.4 g/dL (3.4-5.0); CALCIUM 8.3 mg/dL (8.5-10.1); CARBON DIOXIDE 24.8 mmol/L (21-32); MAGNESIUM 1.6 mg/dL (1.8-2.4); POTASSIUM 3.8 mmol/L (3.5-5.1); TOTAL BILIRUBIN 0.3 mg/dL (0.0-1.0); TOTAL PROTEIN, SERUM 8.3 g/dL (6.4-8.2)
[2023-07-21] MEDS ORDERED: VANCOMYCIN 1,500 MG in DEXTROSE 5% 500 ML IV SCH (11:00)
[2023-07-21] MEDS ORDERED: INSULIN LANTUS 100 UNITS/ML 10 ML VIAL SUBQ SCH (11:15)
[2023-07-21] MEDS ORDERED: VANCOMYCIN 500 MG VIAL ONE (11:34)
[2023-07-21] MEDS ORDERED: VANCOMYCIN 1,000 MG VIAL ONE (11:34)
[2023-07-21 12:44] VITALS: BP 160/78; PULSE 100; RESP 20; TEMP 98.9; O2SAT 99
[2023-07-31] MEDS ORDERED: NICO-532 TD (16:34)
[2023-07-31] MEDS ORDERED: LANTUS SUBQ (16:34)
[2023-07-31] MEDS ORDERED: GABA300C55 PO (16:34)
== END 2023-07-21 13:57 | disposition left against medical advice (07) | DRG 720 ==
LOC: MED 16:23 → MMU 20:13 → UNDODISIN 07-21 13:57
PROVIDERS: ADMIT Internal Medicine; ATTEND Internal Medicine
DX: A41.9 Sepsis, unspecified organism (principal); M72.6 Necrotizing fasciitis; E43 Unspecified severe protein-calorie malnutrition; A48.0 Gas gangrene; E11.52 Type 2 diabetes mellitus with diabetic peripheral angiopathy with gangrene; E11.22 Type 2 diabetes mellitus with diabetic chronic kidney disease; E11.40 Type 2 diabetes mellitus with diabetic neuropathy, unspecified; L03.115 Cellulitis of right lower limb; M86.8X7 Other osteomyelitis, ankle and foot; E11.621 Type 2 diabetes mellitus with foot ulcer; E11.69 Type 2 diabetes mellitus with other specified complication; I10 Essential (primary) hypertension; J45.909 Unspecified asthma, uncomplicated; J44.9 Chronic obstructive pulmonary disease, unspecified; Z68.27 Body mass index [BMI] 27.0-27.9, adult
CPT/HCPCS: 36415; 73590; 73630; 80048; 80053; 80076; 81001; 82550; 82553; 82948; 83605; 83735; 85025; 85610; 85651; 85730; 86140; 86886; 86900; 86901; 87040; 93970; 96365; 96375; 96376; 99291; J1644; J1815; J2060; J2270; J2405; J2543; J3370; J7060; Q0092

== ENCOUNTER 2023-08-16 23:40 | Emergency (ER) | payer OTHER ==
[~2023-08-16] VITALS: Ht 180.3 cm; Wt 95.3 kg
[~2023-08-16 23:40] MED LIST changes: -ALBU0.0912 IH; -ALPR0.252 PO; -FURO-572 PO; -GABA100C PO; +GABA300C55 PO; +LANTUS SUBQ; -LISI2.5T12 PO; -METF-713 PO; +NICO-532 TD; -OXYC5TAB4 PO; -SEMA0.25 SQ
[2023-08-16 23:56] VITALS: BP 142/89; PULSE 104; RESP 20; TEMP 97.4; O2SAT 99
[2023-08-17] MEDS: MORPHINE SULFATE 4 MG/ML SYR IVP ONE (02:39)
[2023-08-17] MEDS: NACL 0.9% 500 ML IV ONE (02:41)
[2023-08-17 02:49] VITALS: BP 137/79; O2SAT 93
[2023-08-17] MEDS ORDERED: ACET-8905 PO (03:20)
== END 2023-08-17 03:30 | disposition home or self-care (01) ==
LOC: MED 23:40
DX: T82.524A Displacement of infusion catheter, initial encounter (principal); J44.9 Chronic obstructive pulmonary disease, unspecified; E11.9 Type 2 diabetes mellitus without complications; I10 Essential (primary) hypertension; Z98.890 Other specified postprocedural states; Z79.899 Other long term (current) drug therapy; Z79.4 Long term (current) use of insulin
CPT/HCPCS: 71045; 96361; 96374; 99283; J2270; J7030; Q0092

== ENCOUNTER 2023-09-06 18:25 | Emergency (ER) | payer OTHER ==
[~2023-09-06] VITALS: Ht 180.3 cm; Wt 95.3 kg
[~2023-09-06 18:25] MED LIST changes: +ACET-8905 PO
[2023-09-06 18:40] VITALS: BP 132/97; PULSE 108; RESP 20; TEMP 98.4; O2SAT 92
[2023-09-06 19:58] LABS: BASOPHILS % (AUTO) 0.4 % (0.0-2.0); EOSINOPHILS # (AUTO) 0.2 K/uL (0-0.4); EOSINOPHILS % (AUTO) 1.5 % (0.0-4.0); HEMATOCRIT 31.8 % (36-52); HEMOGLOBIN 10.4 g/dL (12.0-18.0); LYMPHOCYTES # (AUTO) 2.2 K/uL (2.0-11.5); LYMPHOCYTES % (AUTO) 20.7 % (20.5-51.1); MEAN CORPUSCULAR HEMOGLOBIN 24 pg (27-31); MEAN CORPUSCULAR HGB CONC 33 g/dL (33-37); MEAN CORPUSCULAR VOLUME 74.1 fL (80-94); MONOCYTES # (AUTO) 0.9 K/uL (0.8-1.0); NEUTROPHILS # (AUTO) 7.5 K/uL (1.8-7.7); NEUTROPHILS % (AUTO) 69.4 % (42.2-75.2); PLATELET COUNT (AUTO) 445 K/uL (140-450); RED BLOOD CELL COUNT(AUTO) 4.29 MIL/uL (4.20-6.10); RED CELL DISTRIBUTION WIDTH 19.2 % (11.6-13.7); WHITE BLOOD COUNT (AUTO) 10.9 K/uL (4.8-10.8)
[2023-09-06 20:06] LABS: ANION GAP 11.3 (8-16); CALCIUM 9.4 mg/dL (8.5-10.1); CARBON DIOXIDE 29.8 mmol/L (21-32); CREATININE 0.8 mg/dL (0.6-1.3); POTASSIUM 4.1 mmol/L (3.5-5.1)
[2023-09-06 20:15] LABS: ALANINE AMINOTRANSFERASE 12 U/L (12-78); ALBUMIN 2.8 g/dL (3.4-5.0); ALKALINE PHOSPHATASE 134 U/L (50-136); ASPARTATE AMINOTRANSFERASE 8 U/L (15-37); BILIRUBIN,DIRECT 0.1 mg/dL (0.0-0.3); CREATINE KINASE, TOTAL 39 U/L (39-308); TOTAL BILIRUBIN 0.2 mg/dL (0.0-1.0)
[2023-09-06 20:17] LABS: LACTIC ACID 1.6 mmol/L (0.4-2.0)
[2023-09-06 20:18] LABS: INR 1.02 (0.8-1.2); PARTIAL THROMBOPLASTIN TIME 37.6 secs (22-35.6); PROTHROMBIN TIME 10.7 secs (10.8-13.4)
[2023-09-06] MEDS ORDERED: VANCOMYCIN 1,000 MG in DEXTROSE 5% 250 ML IV ONE (20:45)
[2023-09-06] MEDS: NACL 0.9% 1,000 ML IV ONE (20:45)
[2023-09-06] MEDS ORDERED: PIPERACILLIN/TAZOBACTAM 3.375 GM in DEXTROSE 5% 50 ML IV ONE (20:45)
[2023-09-06] MEDS ORDERED: MECLIZINE 25 MG TAB ONE (22:13)
[2023-09-06] MEDS ORDERED: MORPHINE SULFATE 4 MG/ML SYR ONE (22:29)
[2023-09-06] MEDS: MORPHINE SULFATE 4 MG/ML SYR IM ONE (22:33)
[2023-09-06] MEDS ORDERED: IBUP-2213 PO (22:34)
[2023-09-06] MEDS ORDERED: SULF-59 PO (22:34)
[2023-09-06] MEDS ORDERED: CYCL-711 PO (22:39)
[2023-09-06 22:45] VITALS: BP 121/80; PULSE 104; RESP 20; TEMP 99; O2SAT 94
== END 2023-09-06 22:45 | disposition home or self-care (01) ==
LOC: MED 18:25
DX: E11.621 Type 2 diabetes mellitus with foot ulcer (principal); L97.519 Non-pressure chronic ulcer of other part of right foot with unspecified severity; J44.9 Chronic obstructive pulmonary disease, unspecified; I10 Essential (primary) hypertension; Z79.899 Other long term (current) drug therapy; Z79.4 Long term (current) use of insulin; F41.9 Anxiety disorder, unspecified
CPT/HCPCS: 36415; 71045; 73620; 80048; 80076; 82550; 83605; 84484; 85025; 85610; 85730; 87040; 93005; 96372; 99285; J2270; J8597; Q0092

== ENCOUNTER 2023-09-19 23:31 | Inpatient (IN) | payer OTHER ==
[~2023-09-19] VITALS: Ht 180.3 cm; Wt 95.3 kg
[~2023-09-19 23:31] MED LIST changes: +CYCL-711 PO; +IBUP-2213 PO; +SULF-59 PO
[2023-09-20] VITALS: BP 124/84; PULSE 117; RESP 22; TEMP 98.5; O2SAT 98
[2023-09-20] MEDS: NACL 0.9% 1,000 ML IV ONE ×2 (04:01→05:55)
[2023-09-20] MEDS: MORPHINE SULFATE 2 MG/ML SYR IVP STA (04:15)
[2023-09-20] MEDS: diphenhydrAMINE 50 MG/ML VIAL IVP ONE (04:17)
[2023-09-20] MEDS: ONDANSETRON 4 MG/2 ML VIAL IVP ONE (04:17)
[2023-09-20 04:23] LABS: BASOPHILS # (AUTO) 0.1 K/uL (0.00-0.22); BASOPHILS % (AUTO) 0.8 % (0.0-2.0); EOSINOPHILS # (AUTO) 0.2 K/uL (0-0.4); EOSINOPHILS % (AUTO) 1.5 % (0.0-4.0); HEMATOCRIT 34.8 % (36-52); HEMOGLOBIN 11.6 g/dL (12.0-18.0); LYMPHOCYTES # (AUTO) 2.6 K/uL (2.0-11.5); LYMPHOCYTES % (AUTO) 16.2 % (20.5-51.1); MEAN CORPUSCULAR HEMOGLOBIN 24 pg (27-31); MEAN CORPUSCULAR HGB CONC 33 g/dL (33-37); MEAN CORPUSCULAR VOLUME 73.1 fL (80-94); MONOCYTES # (AUTO) 0.9 K/uL (0.8-1.0); MONOCYTES % (AUTO) 5.7 % (1.7-9.3); NEUTROPHILS % (AUTO) 75.8 % (42.2-75.2); PLATELET COUNT (AUTO) 419 K/uL (140-450); RED BLOOD CELL COUNT(AUTO) 4.76 MIL/uL (4.20-6.10); RED CELL DISTRIBUTION WIDTH 18.4 % (11.6-13.7); WHITE BLOOD COUNT (AUTO) 15.8 K/uL (4.8-10.8)
[2023-09-20 05:12] LABS: ALBUMIN 2.9 g/dL (3.4-5.0); ANION GAP 14.5 (8-16); CALCIUM 9.6 mg/dL (8.5-10.1); CARBON DIOXIDE 26.3 mmol/L (21-32); CREATININE 0.9 mg/dL (0.6-1.3); POTASSIUM 4.8 mmol/L (3.5-5.1); TOTAL BILIRUBIN 0.2 mg/dL (0.0-1.0); TOTAL PROTEIN, SERUM 10.6 g/dL (6.4-8.2)
[2023-09-20 05:14] LABS: LACTIC ACID 2.4 mmol/L (0.4-2.0)
[2023-09-20] MEDS: VANCOMYCIN 1,000 MG in DEXTROSE 5% 250 ML IV ONE (05:15)
[2023-09-20] MEDS ORDERED: PIPERACILLIN/TAZOBACTAM 3.375 GM VIAL IV ONE (05:40)
[2023-09-20] MEDS: PIPERACILLIN/TAZOBACTAM 3.375 GM in DEXTROSE 5% 50 ML IV ONE (05:53)
[2023-09-20] MEDS ORDERED: VANCOMYCIN 1,000 MG VIAL ONE (06:23)
[2023-09-20] MEDS ORDERED: MAGNESIUM OXIDE 400 MG TAB PO PRN (06:50)
[2023-09-20] MEDS ORDERED: ONDANSETRON 4 MG/2 ML VIAL IVP PRN (06:50)
[2023-09-20] MEDS ORDERED: ACETAMINOPHEN 325 MG TAB PO PRN (06:50)
[2023-09-20] MEDS ORDERED: VANCOMYCIN PER PHARMACY MC PRN (06:50)
[2023-09-20] MEDS ORDERED: MAG SULF 2000 MG/WATER PREMIX 50 ML IV PRN (06:50)
[2023-09-20] MEDS ORDERED: KCL 20 MEQ IN 100 mL PREMIX 200 ML IV PRN (06:50)
[2023-09-20] MEDS ORDERED: POTASSIUM CHLORIDE 10 MEQ TABER PO PRN (06:50)
[2023-09-20] MEDS ORDERED: METF-346 PO (06:51)
[2023-09-20 07:22] VITALS: O2SAT 98
[2023-09-20 09:41] LABS: APPEARANCE,URINE CLEAR (CLEAR); BILIRUBIN,URINE NEGATIVE (NEGATIVE); BLOOD, URINE 1+ (NEGATIVE); COLOR,URINE YELLOW (YELLOW); LEUKOCYTE ESTERASE ,URINE NEGATIVE (NEGATIVE); NITRITE, URINE NEGATIVE (NEGATIVE); PROTEIN,URINE 1+ (NEGATIVE); UGLUCOSE 2+ (NEGATIVE); UROBILINOGEN,URINE 0.2 EU/dL (0.2 - 1)
[2023-09-20 09:54] LABS: BACTERIA,URINE OCCASSIONAL /HPF (None Seen); RBC,URINE 0-5 /HPF (0-5); SQUAMOUS EPITHELIAL CELL,UR 0-3 (FEW) /LPF (0-3 (FEW)); WBC,URINE 0-5 /HPF (0-5)
[2023-09-20] MEDS: HYDROcodone/APAP 5/325 MG 1 TAB TAB PO PRN (11:57)
[2023-09-20] MEDS: DOCUSATE SODIUM 100 MG GELCAP PO SCH (11:57)
[2023-09-20] MEDS: VANCOMYCIN 1,000 MG in NACL 0.9% 250 ML IV SCH (14:02)
[2023-09-20] MEDS: NACL 0.9% 1,000 ML IV SCH (14:02)
[2023-09-20 15:40] VITALS: O2SAT 99
[2023-09-20 16:33] VITALS: BP 123/75; PULSE 68; RESP 20; TEMP 98.7
[2023-09-20] MEDS ORDERED: MEDS-TO-BEDS MC SCH (21:00)
== END 2023-09-20 17:13 | disposition home or self-care (01) | DRG 349 ==
LOC: MED 23:31 → MTU 09-20 06:55
PROVIDERS: ADMIT Hospitalist; ATTEND Hospitalist
DX: T87.43 Infection of amputation stump, right lower extremity (principal); E44.0 Moderate protein-calorie malnutrition; R65.10 Systemic inflammatory response syndrome (SIRS) of non-infectious origin without acute organ dysfunction; E11.42 Type 2 diabetes mellitus with diabetic polyneuropathy; E11.51 Type 2 diabetes mellitus with diabetic peripheral angiopathy without gangrene; E87.1 Hypo-osmolality and hyponatremia; Y83.8 Other surgical procedures as the cause of abnormal reaction of the patient, or of later complication, without mention of misadventure at the time of the procedure; J44.9 Chronic obstructive pulmonary disease, unspecified; I10 Essential (primary) hypertension; Z79.899 Other long term (current) drug therapy; Y92.89 Other specified places as the place of occurrence of the external cause; Z82.49 Family history of ischemic heart disease and other diseases of the circulatory system; Z79.4 Long term (current) use of insulin; Z68.29 Body mass index [BMI] 29.0-29.9, adult
CPT/HCPCS: 36415; 73630; 80053; 81001; 83605; 85025; 85651; 86140; 87040; 87081; 87086; 96361; 96365; 96368; 96375; 99291; J0696; J1200; J1644; J2270; J2405; J2543; J3370; J7030; J7060; Q0092

== ENCOUNTER 2023-09-27 16:29 | Emergency (ER) | payer OTHER ==
[~2023-09-27] VITALS: Ht 172.7 cm; Wt 86.2 kg
[~2023-09-27 16:29] MED LIST changes: +METF-346 PO
[2023-09-27 16:56] VITALS: BP 100/58; PULSE 111; RESP 16; TEMP 99.5; O2SAT 99
[2023-09-27 18:09] VITALS: BP 107/57; PULSE 108; RESP 16; TEMP 99.5; O2SAT 99
[2023-09-27] MEDS: MORPHINE SULFATE 4 MG/ML SYR IM ONE (18:09)
== END 2023-09-27 19:03 | disposition home or self-care (01) ==
LOC: MED 16:29
DX: E11.621 Type 2 diabetes mellitus with foot ulcer (principal); J44.9 Chronic obstructive pulmonary disease, unspecified; E11.9 Type 2 diabetes mellitus without complications; I10 Essential (primary) hypertension; F17.200 Nicotine dependence, unspecified, uncomplicated; Z98.890 Other specified postprocedural states; Z79.899 Other long term (current) drug therapy; Z79.4 Long term (current) use of insulin
CPT/HCPCS: 96372; 99283; J2270

== ENCOUNTER 2023-10-08 02:15 | Inpatient (IN) | payer OTHER ==
[~2023-10-08] VITALS: Ht 180.3 cm; Wt 95.3 kg
[2023-10-08 02:46] VITALS: BP 105/67; PULSE 103; RESP 18; TEMP 97.1; O2SAT 96
[2023-10-08] MEDS ORDERED: cefTRIAXone 1,000 MG VIAL ONE (03:18)
[2023-10-08] MEDS: cefTRIAXone 1,000 MG in DEXT 5% MINI-BAG PLUS 50 ML IV ONE (03:20)
[2023-10-08] MEDS: MORPHINE SULFATE 4 MG/ML SYR IVP ONE (03:21)
[2023-10-08 03:27] LABS: BASOPHILS # (AUTO) 0.1 K/uL (0.00-0.22); BASOPHILS % (AUTO) 0.8 % (0.0-2.0); EOSINOPHILS # (AUTO) 0.1 K/uL (0-0.4); EOSINOPHILS % (AUTO) 0.8 % (0.0-4.0); HEMATOCRIT 31.7 % (36-52); HEMOGLOBIN 10.4 g/dL (12.0-18.0); LYMPHOCYTES # (AUTO) 2.8 K/uL (2.0-11.5); LYMPHOCYTES % (AUTO) 17.9 % (20.5-51.1); MEAN CORPUSCULAR HEMOGLOBIN 24 pg (27-31); MEAN CORPUSCULAR HGB CONC 33 g/dL (33-37); MEAN CORPUSCULAR VOLUME 71.7 fL (80-94); MONOCYTES # (AUTO) 1.5 K/uL (0.8-1.0); MONOCYTES % (AUTO) 9.4 % (1.7-9.3); NEUTROPHILS % (AUTO) 71.1 % (42.2-75.2); PLATELET COUNT (AUTO) 500 K/uL (140-450); RED BLOOD CELL COUNT(AUTO) 4.42 MIL/uL (4.20-6.10); RED CELL DISTRIBUTION WIDTH 17.9 % (11.6-13.7); WHITE BLOOD COUNT (AUTO) 15.5 K/uL (4.8-10.8)
[2023-10-08] MEDS: NACL 0.9% 1,000 ML IV SCH ×2 (03:33→19:08)
[2023-10-08 03:35] LABS: CALCIUM 8.9 mg/dL (8.5-10.1); CARBON DIOXIDE 27.3 mmol/L (21-32); CREATININE 0.8 mg/dL (0.6-1.3); POTASSIUM 4.3 mmol/L (3.5-5.1)
[2023-10-08 03:44] LABS: LACTIC ACID 0.9 mmol/L (0.4-2.0)
[2023-10-08] MEDS ORDERED: ONDANSETRON 4 MG/2 ML VIAL ONE (04:00)
[2023-10-08] MEDS: ONDANSETRON 4 MG/2 ML VIAL IVP ONE (04:06)
[2023-10-08] MEDS: diphenhydrAMINE 50 MG/ML VIAL IVP ONE (04:09)
[2023-10-08] MEDS ORDERED: VANCOMYCIN PER PHARMACY MC PRN (04:45)
[2023-10-08] MEDS ORDERED: KCL 20 MEQ IN 100 mL PREMIX 200 ML IV PRN (04:45)
[2023-10-08] MEDS ORDERED: ACETAMINOPHEN 325 MG TAB PO PRN (04:45)
[2023-10-08] MEDS ORDERED: ONDANSETRON 4 MG/2 ML VIAL IVP PRN ×2 (04:45→15:50)
[2023-10-08] MEDS ORDERED: MAGNESIUM OXIDE 400 MG TAB PO PRN (04:45)
[2023-10-08] MEDS ORDERED: POTASSIUM CHLORIDE 10 MEQ TABER PO PRN (04:45)
[2023-10-08] MEDS ORDERED: HYDROcodone/APAP 5/325 MG 1 TAB TAB PO PRN ×2 (04:45→17:20)
[2023-10-08] MEDS ORDERED: MAG SULF 2000 MG/WATER PREMIX 50 ML IV PRN (04:45)
[2023-10-08] MEDS ORDERED: VANCOMYCIN 1,000 MG VIAL ONE (05:21)
[2023-10-08] MEDS: VANCOMYCIN 1GM/DEXT 5% PREMIX 200 ML IV SCH (05:50)
[2023-10-08 08:00] VITALS: BP 147/69; PULSE 91; RESP 20; TEMP 97.8; O2SAT 96
[2023-10-08 14:03] VITALS: PULSE 68; RESP 20; O2SAT 99
[2023-10-08] MEDS ORDERED: HYDROmorphone 1 MG/ML AMP IVP PRN (15:50)
[2023-10-08] MEDS ORDERED: ACETAMINOPHEN 100 ML IV PRN (15:50)
[2023-10-08] MEDS ORDERED: SUCCINYLCHOLINE CHLORIDE 200 MG/10 ML VIAL IVP ONE (16:46)
[2023-10-08] MEDS ORDERED: SEVOFLURANE 250 ML BTL INH ONE (16:46)
[2023-10-08] MEDS ORDERED: DEXTROSE 50% 50 ML SYR IVP PRN (17:15)
[2023-10-08] MEDS ORDERED: CYCLOBENZAPRINE 10 MG TAB PO PRN (17:20)
[2023-10-08] MEDS: BLOOD GLUCOSE MONITORING 1 DEV DEV FS SCH ×2 (17:55→20:42)
[2023-10-08] MEDS: INSULIN LISPRO SLIDING SCALE 100 UNITS/ML VIAL SUBQ PRN (17:59)
[2023-10-08] MEDS: fentaNYL citrate 0.05 MG/ML VIAL ONE (19:00)
[2023-10-08] MEDS: DEXAMETHASONE 4 MG/ML VIAL ONE (19:00)
[2023-10-08] MEDS: HYDROGEN PEROXIDE 3% 240 ML BTL TP ONE (19:00)
[2023-10-08] MEDS: PROPOFOL 200 MG/20 ML VIAL IV ONE (19:00)
[2023-10-08] MEDS: METOCLOPRAMIDE 10 MG/2 ML INJ VIAL ONE (19:00)
[2023-10-08] MEDS: ONDANSETRON 4 MG/2 ML VIAL ONE (19:00)
[2023-10-08] MEDS: ceFAZolin 1,000 MG VIAL ONE ×2 (19:00)
[2023-10-08] MEDS: SUGAMMADEX SODIUM 200 MG/2 ML VIAL IV ONE (19:00)
[2023-10-08] MEDS: MIDAZOLAM 2 MG/2 ML VIAL ONE ×2 (19:00)
[2023-10-08] MEDS: ROCURONIUM 50 MG/5 ML VIAL IV ONE (19:00)
[2023-10-08] MEDS: LIDOCAINE 1% 500 MG/50 ML VIAL ONE (19:00)
[2023-10-08] MEDS: BUPIVACAINE-MPF 0.25% 30 ML VIAL INJ ONE (19:00)
[2023-10-08] MEDS: VANCOMYCIN 1.25GM PREMIX 250 ML IV SCH (19:07)
[2023-10-08 20:00] VITALS: BP 145/70; PULSE 88; RESP 18; TEMP 98.1; O2SAT 97
[2023-10-08] MEDS: MEDS-TO-BEDS MC SCH (20:26)
[2023-10-08] MEDS: MORPHINE SULFATE 2 MG/ML SYR IVP PRN (20:57)
[2023-10-08] MEDS: GABAPENTIN 300 MG CAP PO SCH (21:03)
[2023-10-09] MEDS ORDERED: NICOTINE TRANSD SYS 21 MG/24 HR PATCH TD SCH (09:00)
[2023-10-09] MEDS ORDERED: ENOXAPARIN 40 MG/0.4 ML SYR SUBQ SCH (09:00)
== END 2023-10-09 02:15 | disposition left against medical advice (07) | DRG 710 ==
LOC: MED 02:15 → MTU 04:47 → MMU 04:47 → MTU 05:15
PROVIDERS: ADMIT Hospitalist; ATTEND Hospitalist
PROC: 0Y9M0ZZ Drainage of Right Foot, Open Approach (ICD-10-PCS; 2023-10-08)
PROC: 0QBN0ZZ Excision of Right Metatarsal, Open Approach (ICD-10-PCS; principal; 2023-10-08 16:00)
DX: A41.9 Sepsis, unspecified organism (principal); E11.621 Type 2 diabetes mellitus with foot ulcer; L03.115 Cellulitis of right lower limb; E11.69 Type 2 diabetes mellitus with other specified complication; M86.8X7 Other osteomyelitis, ankle and foot; J44.9 Chronic obstructive pulmonary disease, unspecified; Z79.899 Other long term (current) drug therapy; L97.415 Non-pressure chronic ulcer of right heel and midfoot with muscle involvement without evidence of necrosis
CPT/HCPCS: 36415; 71045; 73630; 80048; 82948; 83605; 83880; 84484; 85025; 87040; 87070; 87075; 87081; 87186; 87205; 96365; 96375; 99285; J0330; J0690; J0696; J1100; J1200; J1644; J1815; J2001; J2250; J2270; J2405; J2704; J2765; J3010; J3370; J3372; J3490; J7060; Q4128

== ENCOUNTER 2023-11-09 17:50 | Inpatient (IN) | payer OTHER ==
[~2023-11-09] VITALS: Ht 180.3 cm; Wt 95.3 kg
[2023-11-09 18:06] VITALS: BP 96/55; PULSE 115; RESP 20; TEMP 98.8; O2SAT 94
[2023-11-09] MEDS: NACL 0.9% 1,000 ML IV ONE (19:11)
[2023-11-09 19:30] LABS: BASOPHILS % (AUTO) 0.1 % (0.0-2.0); EOSINOPHILS % (AUTO) 0.2 % (0.0-4.0); HEMATOCRIT 26.4 % (36-52); HEMOGLOBIN 8.5 g/dL (12.0-18.0); LYMPHOCYTES # (AUTO) 1.7 K/uL (2.0-11.5); LYMPHOCYTES % (AUTO) 10.2 % (20.5-51.1); MEAN CORPUSCULAR HEMOGLOBIN 23 pg (27-31); MEAN CORPUSCULAR HGB CONC 32 g/dL (33-37); MEAN CORPUSCULAR VOLUME 69.9 fL (80-94); MONOCYTES # (AUTO) 1.1 K/uL (0.8-1.0); MONOCYTES % (AUTO) 6.6 % (1.7-9.3); NEUTROPHILS # (AUTO) 14.1 K/uL (1.8-7.7); NEUTROPHILS % (AUTO) 82.9 % (42.2-75.2); PLATELET COUNT (AUTO) 556 K/uL (140-450); RED BLOOD CELL COUNT(AUTO) 3.77 MIL/uL (4.20-6.10); RED CELL DISTRIBUTION WIDTH 17.8 % (11.6-13.7)
[2023-11-09 19:41] LABS: ANION GAP 13.5 (8-16); CALCIUM 8.5 mg/dL (8.5-10.1); CARBON DIOXIDE 25.6 mmol/L (21-32); POTASSIUM 4.1 mmol/L (3.5-5.1)
[2023-11-09 19:51] LABS: LACTIC ACID 1.8 mmol/L (0.4-2.0)
[2023-11-09] MEDS ORDERED: PIPERACILLIN/TAZOBACTAM 3.375 GM VIAL IV ONE (20:08)
[2023-11-09] MEDS: PIPERACILLIN/TAZOBACTAM 3.375 GM in DEXTROSE 5% 50 ML IV ONE (20:12)
[2023-11-09] MEDS ORDERED: VANCOMYCIN 1,000 MG VIAL ONE (20:40)
[2023-11-09] MEDS ORDERED: MAG SULF 2000 MG/WATER PREMIX 50 ML IV PRN (21:00)
[2023-11-09] MEDS ORDERED: MAGNESIUM OXIDE 400 MG TAB PO PRN (21:00)
[2023-11-09] MEDS ORDERED: POTASSIUM CHLORIDE 10 MEQ TABER PO PRN (21:00)
[2023-11-09] MEDS ORDERED: KCL 20 MEQ IN 100 mL PREMIX 200 ML IV PRN (21:00)
[2023-11-09] MEDS: VANCOMYCIN 1,000 MG in DEXTROSE 5% 250 ML IV ONE (21:00)
[2023-11-09] MEDS ORDERED: VANCOMYCIN PER PHARMACY MC PRN (21:00)
[2023-11-09] MEDS ORDERED: ONDANSETRON 4 MG/2 ML VIAL IVP PRN (21:00)
[2023-11-09] MEDS ORDERED: ACETAMINOPHEN 325 MG TAB PO PRN (21:00)
[2023-11-09] MEDS ORDERED: HYDROcodone/APAP 5/325 MG 1 TAB TAB PO PRN (21:00)
[2023-11-09] MEDS ORDERED: DEXTROSE 50% 50 ML SYR IVP PRN (21:05)
[2023-11-09] MEDS ORDERED: ALPR1TAB2 PO (21:07)
[2023-11-09] MEDS ORDERED: METF-352 PO (21:07)
[2023-11-09 22:25] VITALS: PULSE 95; RESP 19; O2SAT 94
[2023-11-09] MEDS: cefTRIAXone 1,000 MG VIAL ONE (23:23)
[2023-11-09] MEDS: MORPHINE SULFATE 4 MG/ML SYR IVP PRN (23:31)
[2023-11-10] VITALS: BP 124/76; PULSE 95; RESP 19; TEMP 98.1; O2SAT 94
[2023-11-10] MEDS ORDERED: GAUZE TP PRN (00:30)
[2023-11-10] MEDS ORDERED: CARI350T PO (00:53)
[2023-11-10 04:00] VITALS: BP 114/63; PULSE 94; RESP 19; TEMP 98.6; O2SAT 95
[2023-11-10] MEDS: BLOOD GLUCOSE MONITORING 1 DEV DEV FS SCH (06:30)
[2023-11-10] MEDS: INSULIN LISPRO SLIDING SCALE 100 UNITS/ML VIAL SUBQ PRN (06:32)
[2023-11-10 08:00] VITALS: PULSE 76; RESP 18; O2SAT 99
[2023-11-10] MEDS: DOCUSATE SODIUM 100 MG GELCAP PO SCH (09:22)
[2023-11-10] MEDS: VANCOMYCIN 1.25GM PREMIX 250 ML IV SCH (10:11)
[2023-11-10] MEDS ORDERED: NACL 0.9% IRR 250 ML BOTTLE IR SCH (13:00)
[2023-11-10] MEDS ORDERED: MEDS-TO-BEDS MC SCH (21:00)
== END 2023-11-10 14:45 | disposition left against medical advice (07) | DRG 720 ==
LOC: MED 17:50 → MTU 21:03
PROVIDERS: ADMIT Hospitalist; ATTEND Hospitalist
DX: A41.9 Sepsis, unspecified organism (principal); E11.00 Type 2 diabetes mellitus with hyperosmolarity without nonketotic hyperglycemic-hyperosmolar coma (NKHHC); E11.621 Type 2 diabetes mellitus with foot ulcer; L97.519 Non-pressure chronic ulcer of other part of right foot with unspecified severity; Z79.4 Long term (current) use of insulin; I10 Essential (primary) hypertension; J44.9 Chronic obstructive pulmonary disease, unspecified; Z53.29 Procedure and treatment not carried out because of patient's decision for other reasons; Z79.899 Other long term (current) drug therapy; Z79.84 Long term (current) use of oral hypoglycemic drugs; F19.10 Other psychoactive substance abuse, uncomplicated
CPT/HCPCS: 36415; 73630; 80048; 82009; 82948; 83605; 85025; 87040; 87081; 96365; 96367; 99285; J0696; J1644; J1815; J2270; J2543; J3370; J3372; J7060

== ENCOUNTER 2023-12-04 22:30 | Emergency (ER) | payer OTHER ==
[~2023-12-04] VITALS: Ht 180.3 cm; Wt 95.3 kg
[~2023-12-04 22:30] MED LIST changes: +ALPR1TAB2 PO; +CARI350T PO; +METF-352 PO; -NICO-532 TD
[2023-12-04 22:40] VITALS: BP 126/64; PULSE 88; RESP 20; TEMP 97.7; O2SAT 97
[2023-12-05] MEDS ORDERED: VANCOMYCIN 1,000 MG in DEXTROSE 5% 250 ML IV ONE (04:25)
[2023-12-05] MEDS ORDERED: MORPHINE SULFATE 4 MG/ML SYR IVP ONE (04:25)
[2023-12-05] MEDS ORDERED: PIPERACILLIN/TAZOBACTAM 3.375 GM in DEXTROSE 5% 50 ML IV ONE (04:25)
== END 2023-12-05 04:56 | disposition left against medical advice (07) ==
LOC: MED 22:30
DX: E11.621 Type 2 diabetes mellitus with foot ulcer (principal); J44.9 Chronic obstructive pulmonary disease, unspecified; I10 Essential (primary) hypertension; Z98.890 Other specified postprocedural states; Z79.4 Long term (current) use of insulin; Z79.84 Long term (current) use of oral hypoglycemic drugs; Z79.1 Long term (current) use of non-steroidal anti-inflammatories (NSAID); Z79.899 Other long term (current) drug therapy
CPT/HCPCS: 99281

== ENCOUNTER 2023-12-08 23:30 | Emergency (ER) | payer OTHER ==
[~2023-12-08] VITALS: Ht 180.3 cm; Wt 95.3 kg
[2023-12-09 00:16] VITALS: BP 113/80; PULSE 88; RESP 20; TEMP 97.4; O2SAT 98
[2023-12-09 00:36] VITALS: BP 113/80; PULSE 88; RESP 20; TEMP 97.4; O2SAT 98
== END 2023-12-09 00:50 | disposition left against medical advice (07) ==
LOC: MED 23:30
DX: E11.52 Type 2 diabetes mellitus with diabetic peripheral angiopathy with gangrene (principal); I96 Gangrene, not elsewhere classified; J44.9 Chronic obstructive pulmonary disease, unspecified; Z86.73 Personal history of transient ischemic attack (TIA), and cerebral infarction without residual deficits; Z79.4 Long term (current) use of insulin; Z79.899 Other long term (current) drug therapy
CPT/HCPCS: 99281

== ENCOUNTER 2023-12-10 23:50 | Inpatient (IN) | payer OTHER ==
[~2023-12-10] VITALS: Ht 175.3 cm; Wt 95.3 kg
[2023-12-11] VITALS (8 sets, daily range): BP systolic 104–138; BP diastolic 49–79; PULSE 76–106; RESP 18–19; TEMP 96–98.3; O2SAT 92–100
[2023-12-11] MEDS ORDERED: cefTRIAXone 1,000 MG VIAL ONE (00:05)
[2023-12-11 00:39] LABS: BASOPHILS # (AUTO) 0.1 K/uL (0.00-0.22); BASOPHILS % (AUTO) 1.3 % (0.0-2.0); EOSINOPHILS # (AUTO) 0.2 K/uL (0-0.4); EOSINOPHILS % (AUTO) 1.8 % (0.0-4.0); HEMOGLOBIN 9.6 g/dL (12.0-18.0); LYMPHOCYTES # (AUTO) 2.8 K/uL (2.0-11.5); LYMPHOCYTES % (AUTO) 24.6 % (20.5-51.1); MEAN CORPUSCULAR HEMOGLOBIN 23 pg (27-31); MEAN CORPUSCULAR HGB CONC 32 g/dL (33-37); MEAN CORPUSCULAR VOLUME 71.1 fL (80-94); MONOCYTES # (AUTO) 0.7 K/uL (0.8-1.0); MONOCYTES % (AUTO) 6.6 % (1.7-9.3); NEUTROPHILS # (AUTO) 7.4 K/uL (1.8-7.7); NEUTROPHILS % (AUTO) 65.7 % (42.2-75.2); PLATELET COUNT (AUTO) 453 K/uL (140-450); RED BLOOD CELL COUNT(AUTO) 4.22 MIL/uL (4.20-6.10); RED CELL DISTRIBUTION WIDTH 20.1 % (11.6-13.7); WHITE BLOOD COUNT (AUTO) 11.2 K/uL (4.8-10.8)
[2023-12-11] MEDS: NACL 0.9% 1,000 ML IV SCH ×2 (00:40→03:10)
[2023-12-11] MEDS: MORPHINE SULFATE 4 MG/ML SYR IVP ONE ×2 (00:48→02:58)
[2023-12-11] MEDS: cefTRIAXone 1,000 MG in DEXT 5% MINI-BAG PLUS 50 ML IV ONE (00:49)
[2023-12-11 01:07] LABS: ANION GAP 9.3 (8-16); CALCIUM 9.3 mg/dL (8.5-10.1); CREATININE 0.7 mg/dL (0.6-1.3)
[2023-12-11 01:12] LABS: ALANINE AMINOTRANSFERASE 16 U/L (12-78); ALKALINE PHOSPHATASE 128 U/L (50-136); ASPARTATE AMINOTRANSFERASE 91 U/L (15-37); TOTAL BILIRUBIN 0.9 mg/dL (0.0-1.0); TOTAL PROTEIN, SERUM 9.8 g/dL (6.4-8.2)
[2023-12-11 01:13] LABS: ALBUMIN 2.1 g/dL (3.4-5.0)
[2023-12-11 01:16] LABS: POTASSIUM 7.3 mmol/L (3.5-5.1)
[2023-12-11 01:53] LABS: ANION GAP 9.5 (8-16); CALCIUM 8.9 mg/dL (8.5-10.1); CARBON DIOXIDE 28.3 mmol/L (21-32); CREATININE 0.9 mg/dL (0.6-1.3); POTASSIUM 3.8 mmol/L (3.5-5.1)
[2023-12-11] MEDS ORDERED: ONDANSETRON 4 MG/2 ML VIAL IVP PRN (03:10)
[2023-12-11] MEDS ORDERED: HYDROcodone/APAP 5/325 MG 1 TAB TAB PO PRN (03:10)
[2023-12-11] MEDS ORDERED: VANCOMYCIN PER PHARMACY MC PRN (03:10)
[2023-12-11] MEDS ORDERED: MAGNESIUM OXIDE 400 MG TAB PO PRN (03:10)
[2023-12-11] MEDS ORDERED: MAG SULF 2000 MG/WATER PREMIX 50 ML IV PRN (03:10)
[2023-12-11] MEDS ORDERED: ACETAMINOPHEN 325 MG TAB PO PRN (03:10)
[2023-12-11] MEDS ORDERED: POTASSIUM CHLORIDE 10 MEQ TABER PO PRN (03:10)
[2023-12-11] MEDS ORDERED: KCL 20 MEQ IN 100 mL PREMIX 200 ML IV PRN (03:10)
[2023-12-11] MEDS ORDERED: DEXTROSE 50% 50 ML SYR IVP PRN (03:15)
[2023-12-11] MEDS: MORPHINE SULFATE 4 MG/ML SYR IVP PRN (05:59)
[2023-12-11] MEDS: BLOOD GLUCOSE MONITORING 1 DEV DEV FS SCH (06:43)
[2023-12-11] MEDS: INSULIN LISPRO SLIDING SCALE 100 UNITS/ML VIAL SUBQ PRN (06:44)
[2023-12-11] MEDS: DOCUSATE SODIUM 100 MG GELCAP PO SCH (10:01)
[2023-12-11] MEDS: VANCOMYCIN 1,000 MG in DEXTROSE 5% 250 ML IV SCH (10:02)
[2023-12-11] MEDS: NICOTINE TRANSD SYS 21 MG/24 HR PATCH TD SCH (14:16)
[2023-12-11] MEDS: IBUPROFEN 800 MG TAB PO PRN (18:18)
[2023-12-11] MEDS: VANCOMYCIN 1,000 MG in NACL 0.9% 250 ML IV SCH (18:19)
[2023-12-11] MEDS: GABAPENTIN 300 MG CAP PO SCH (21:30)
[2023-12-11] MEDS: MEDS-TO-BEDS MC SCH (21:30)
[2023-12-11] MEDS: ALPRAZolam 0.5 MG TAB PO SCH (21:31)
[2023-12-12] VITALS: BP 138/79; PULSE 98; RESP 19; TEMP 98; O2SAT 99
[2023-12-12 03:51] LABS: APPEARANCE,URINE CLEAR (CLEAR); BILIRUBIN,URINE NEGATIVE (NEGATIVE); BLOOD, URINE TRACE-I (NEGATIVE); COLOR,URINE YELLOW (YELLOW); LEUKOCYTE ESTERASE ,URINE NEGATIVE (NEGATIVE); NITRITE, URINE NEGATIVE (NEGATIVE); PROTEIN,URINE NEGATIVE (NEGATIVE); UGLUCOSE 2+ (NEGATIVE); UROBILINOGEN,URINE 0.2 EU/dL (0.2 - 1)
[2023-12-12 04:00] VITALS: BP 123/81; PULSE 94; RESP 18; TEMP 97.5; O2SAT 96
[2023-12-12 04:03] LABS: BACTERIA,URINE OCCASSIONAL /HPF (None Seen); RBC,URINE 0-5 /HPF (0-5); SQUAMOUS EPITHELIAL CELL,UR 0-3 (FEW) /LPF (0-3 (FEW)); WBC,URINE NONE SEEN /HPF (0-5)
[2023-12-12] MEDS ORDERED: MEDS-TO-BEDS MC SCH (09:00)
== END 2023-12-12 08:45 | disposition left against medical advice (07) | DRG 420 ==
LOC: MED 23:50 → MTU 12-11 03:09
PROVIDERS: ADMIT Hospitalist; ATTEND Hospitalist
PROC: 02HV33Z Insertion of Infusion Device into Superior Vena Cava, Percutaneous Approach (ICD-10-PCS; principal; 2023-12-11)
PROC: B548ZZA Ultrasonography of Superior Vena Cava, Guidance (ICD-10-PCS; 2023-12-11)
DX: E11.69 Type 2 diabetes mellitus with other specified complication (principal); E44.0 Moderate protein-calorie malnutrition; E11.51 Type 2 diabetes mellitus with diabetic peripheral angiopathy without gangrene; R65.10 Systemic inflammatory response syndrome (SIRS) of non-infectious origin without acute organ dysfunction; L03.115 Cellulitis of right lower limb; M86.8X8 Other osteomyelitis, other site; E11.621 Type 2 diabetes mellitus with foot ulcer; E87.1 Hypo-osmolality and hyponatremia; E78.5 Hyperlipidemia, unspecified; I10 Essential (primary) hypertension; J44.9 Chronic obstructive pulmonary disease, unspecified; Z79.4 Long term (current) use of insulin; Z79.899 Other long term (current) drug therapy; Z86.73 Personal history of transient ischemic attack (TIA), and cerebral infarction without residual deficits; Z87.891 Personal history of nicotine dependence; Z79.84 Long term (current) use of oral hypoglycemic drugs; Z68.31 Body mass index [BMI] 31.0-31.9, adult; I73.9 Peripheral vascular disease, unspecified
CPT/HCPCS: 36415; 71045; 73590; 73700; 80048; 80076; 80202; 81001; 82948; 83605; 83880; 84484; 85025; 85730; 87040; 87081; 93005; 96361; 96365; 96375; 96376; 99285; J0696; J1644; J1815; J2270; J3370; J7030; J7060

== ENCOUNTER 2023-12-19 10:50 | Inpatient (IN) | payer OTHER ==
[~2023-12-19] VITALS: Ht 180.3 cm; Wt 95.3 kg
[~2023-12-19 10:50] MED LIST changes: -CYCL-711 PO; -SULF-59 PO
[2023-12-19 11:49] VITALS: BP 135/62; PULSE 106; RESP 18; TEMP 98; O2SAT 92
[2023-12-19] MEDS ORDERED: PIPERACILLIN/TAZOBACTAM 3.375 GM VIAL IV ONE (13:12)
[2023-12-19 13:14] VITALS: BP 135/62; PULSE 98; RESP 16; TEMP 98; O2SAT 94
[2023-12-19] MEDS: MORPHINE SULFATE 4 MG/ML SYR IVP ONE (13:25)
[2023-12-19 13:40] LABS: BASOPHILS # (AUTO) 0.1 K/uL (0.00-0.22); EOSINOPHILS # (AUTO) 0.2 K/uL (0-0.4); HEMOGLOBIN 9.6 g/dL (12.0-18.0); LYMPHOCYTES # (AUTO) 2.4 K/uL (2.0-11.5); LYMPHOCYTES % (AUTO) 23.8 % (20.5-51.1); MEAN CORPUSCULAR HEMOGLOBIN 24 pg (27-31); MEAN CORPUSCULAR HGB CONC 33 g/dL (33-37); MEAN CORPUSCULAR VOLUME 70.9 fL (80-94); MONOCYTES # (AUTO) 0.7 K/uL (0.8-1.0); MONOCYTES % (AUTO) 6.7 % (1.7-9.3); NEUTROPHILS # (AUTO) 6.8 K/uL (1.8-7.7); NEUTROPHILS % (AUTO) 66.5 % (42.2-75.2); PLATELET COUNT (AUTO) 434 K/uL (140-450); RED BLOOD CELL COUNT(AUTO) 4.09 MIL/uL (4.20-6.10); RED CELL DISTRIBUTION WIDTH 19.7 % (11.6-13.7); WHITE BLOOD COUNT (AUTO) 10.3 K/uL (4.8-10.8)
[2023-12-19 13:42] LABS: ANION GAP 10.5 (8-16); CALCIUM 9.4 mg/dL (8.5-10.1); CARBON DIOXIDE 28.7 mmol/L (21-32); CREATININE 0.9 mg/dL (0.6-1.3); POTASSIUM 4.2 mmol/L (3.5-5.1)
[2023-12-19 13:46] LABS: ALBUMIN 2.4 g/dL (3.4-5.0); BILIRUBIN,DIRECT 0.1 mg/dL (0.0-0.3); TOTAL BILIRUBIN 0.3 mg/dL (0.0-1.0); TOTAL PROTEIN, SERUM 9.2 g/dL (6.4-8.2)
[2023-12-19 13:52] LABS: LACTIC ACID 2.2 mmol/L (0.4-2.0)
[2023-12-19] MEDS ORDERED: HYDROcodone/APAP 5/325 MG 1 TAB TAB PO PRN (13:55)
[2023-12-19] MEDS ORDERED: MAG SULF 2000 MG/WATER PREMIX 50 ML IV PRN (13:55)
[2023-12-19] MEDS ORDERED: MAGNESIUM OXIDE 400 MG TAB PO PRN (13:55)
[2023-12-19] MEDS ORDERED: VANCOMYCIN PER PHARMACY MC PRN (13:55)
[2023-12-19] MEDS ORDERED: LORazepam 1 MG TAB PO PRN (13:55)
[2023-12-19] MEDS ORDERED: HYDROmorphone 1 MG/ML AMP IVP PRN (13:55)
[2023-12-19] MEDS ORDERED: ACETAMINOPHEN 325 MG TAB PO PRN (13:55)
[2023-12-19] MEDS ORDERED: POTASSIUM CHLORIDE 10 MEQ TABER PO PRN (13:55)
[2023-12-19] MEDS ORDERED: KCL 20 MEQ IN 100 mL PREMIX 200 ML IV PRN (13:55)
[2023-12-19] MEDS ORDERED: ONDANSETRON 4 MG/2 ML VIAL IVP PRN (13:55)
[2023-12-19] MEDS ORDERED: DEXTROSE 50% 50 ML SYR IVP PRN (14:10)
[2023-12-19] MEDS: LACTATED RINGERS 1,000 ML IV SCH (15:25)
[2023-12-19] MEDS: LORazepam 1 MG TAB PO SCH (15:25)
[2023-12-19] MEDS: PIPERACILLIN/TAZOBACTAM 3.375 GM in DEXTROSE 5% 50 ML IV ONE (15:27)
[2023-12-19] MEDS: NACL 0.9% 1,000 ML IV ONE (15:29)
[2023-12-19] MEDS: VANCOMYCIN 1,000 MG in DEXTROSE 5% 250 ML IV ONE (15:39)
[2023-12-19] MEDS ORDERED: NACL 0.9% 500 ML IV ONE (16:25)
[2023-12-19] MEDS ORDERED: VANCOMYCIN 1,000 MG in DEXTROSE 5% 250 ML IV SCH (17:00)
[2023-12-19] MEDS: BLOOD GLUCOSE MONITORING 1 DEV DEV FS SCH (17:05)
[2023-12-19] MEDS: INSULIN LISPRO SLIDING SCALE 100 UNITS/ML VIAL SUBQ PRN (17:09)
[2023-12-20] MEDS ORDERED: DOCUSATE SODIUM 100 MG GELCAP PO SCH (09:00)
[2023-12-20] MEDS ORDERED: NICOTINE TRANSD SYS 21 MG/24 HR PATCH TD SCH (09:00)
== END 2023-12-19 17:44 | disposition left against medical advice (07) | DRG 344 ==
LOC: MED 10:50 → MMU 13:54 → MTU 16:34
PROVIDERS: ADMIT Hospitalist; ATTEND Hospitalist
DX: E11.69 Type 2 diabetes mellitus with other specified complication (principal); M86.171 Other acute osteomyelitis, right ankle and foot; D63.8 Anemia in other chronic diseases classified elsewhere; E87.20 Acidosis, unspecified; E11.40 Type 2 diabetes mellitus with diabetic neuropathy, unspecified; E87.8 Other disorders of electrolyte and fluid balance, not elsewhere classified; F19.20 Other psychoactive substance dependence, uncomplicated; F17.200 Nicotine dependence, unspecified, uncomplicated; E87.1 Hypo-osmolality and hyponatremia; Z79.899 Other long term (current) drug therapy; E11.51 Type 2 diabetes mellitus with diabetic peripheral angiopathy without gangrene
CPT/HCPCS: 36415; 73590; 73630; 80048; 80076; 82948; 83036; 83605; 85025; 85651; 86140; 87040; 96374; 96375; 99285; J0696; J1815; J2270; J2543; J3370; J7060

== ENCOUNTER 2023-12-21 08:57 | Inpatient (IN) | payer OTHER ==
[~2023-12-21] VITALS: Ht 180.3 cm; Wt 95.3 kg
[2023-12-21 09:22] VITALS: BP 137/79; PULSE 93; RESP 16; TEMP 98.6; O2SAT 93
[2023-12-21] MEDS ORDERED: PIPERACILLIN/TAZOBACTAM 3.375 GM VIAL IV ONE (09:44)
[2023-12-21] MEDS ORDERED: VANCOMYCIN 1,000 MG VIAL ONE (09:45)
[2023-12-21] MEDS: NACL 0.9% 1,000 ML IV ONE (10:33)
[2023-12-21] MEDS: PIPERACILLIN/TAZOBACTAM 3.375 GM in DEXTROSE 5% 50 ML IV ONE (10:35)
[2023-12-21] MEDS: VANCOMYCIN 1,000 MG in DEXTROSE 5% 250 ML IV ONE (11:05)
[2023-12-21 11:14] LABS: ANION GAP 14.1 (8-16); CALCIUM 9.6 mg/dL (8.5-10.1); CARBON DIOXIDE 26.8 mmol/L (21-32); CREATININE 0.8 mg/dL (0.6-1.3); POTASSIUM 3.9 mmol/L (3.5-5.1)
[2023-12-21 11:16] LABS: INR 1.02 (0.8-1.2); PROTHROMBIN TIME 10.7 secs (10.8-13.4)
[2023-12-21 11:18] LABS: BASOPHILS # (AUTO) 0.1 K/uL (0.00-0.22); BASOPHILS % (AUTO) 0.6 % (0.0-2.0); EOSINOPHILS # (AUTO) 0.2 K/uL (0-0.4); EOSINOPHILS % (AUTO) 2.2 % (0.0-4.0); HEMOGLOBIN 9.6 g/dL (12.0-18.0); LYMPHOCYTES # (AUTO) 2.2 K/uL (2.0-11.5); LYMPHOCYTES % (AUTO) 21.9 % (20.5-51.1); MEAN CORPUSCULAR HEMOGLOBIN 23 pg (27-31); MEAN CORPUSCULAR HGB CONC 33 g/dL (33-37); MEAN CORPUSCULAR VOLUME 70.6 fL (80-94); MONOCYTES # (AUTO) 0.6 K/uL (0.8-1.0); MONOCYTES % (AUTO) 6.2 % (1.7-9.3); NEUTROPHILS # (AUTO) 6.9 K/uL (1.8-7.7); NEUTROPHILS % (AUTO) 69.1 % (42.2-75.2); PLATELET COUNT (AUTO) 444 K/uL (140-450); RED CELL DISTRIBUTION WIDTH 19.6 % (11.6-13.7); WHITE BLOOD COUNT (AUTO) 9.9 K/uL (4.8-10.8)
[2023-12-21 11:20] LABS: ALBUMIN 2.3 g/dL (3.4-5.0); BILIRUBIN,DIRECT 0.1 mg/dL (0.0-0.3); TOTAL BILIRUBIN 0.2 mg/dL (0.0-1.0); TOTAL PROTEIN, SERUM 8.9 g/dL (6.4-8.2)
[2023-12-21] MEDS ORDERED: FURO-572 PO (11:36)
[2023-12-21] MEDS: MORPHINE SULFATE 4 MG/ML SYR IVP ONE (11:57)
[2023-12-21] MEDS ORDERED: DEXTROSE 50% 50 ML SYR IVP PRN (12:05)
[2023-12-21] MEDS ORDERED: VANCOMYCIN PER PHARMACY MC PRN (12:05)
[2023-12-21] MEDS ORDERED: ACETAMINOPHEN 325 MG TAB PO PRN (12:05)
[2023-12-21] MEDS ORDERED: ONDANSETRON 4 MG/2 ML VIAL IVP PRN (12:05)
[2023-12-21] MEDS ORDERED: PIPERACILLIN/TAZOBACTAM 3.375 GM in DEXTROSE 5% 50 ML IV SCH (13:00)
[2023-12-21] MEDS ORDERED: VANCOMYCIN 1.25GM PREMIX 250 ML IV SCH (14:00)
[2023-12-21 14:12] VITALS: RESP 16; O2SAT 98
[2023-12-21 16:00] VITALS: BP 145/80; PULSE 70; PULSE 96; RESP 18; TEMP 98; O2SAT 99
[2023-12-21] MEDS: BLOOD GLUCOSE MONITORING 1 DEV DEV FS SCH (17:08)
[2023-12-21] MEDS: HYDROcodone/APAP 5/325 MG 1 TAB TAB PO PRN (17:16)
[2023-12-21] MEDS: INSULIN LISPRO SLIDING SCALE 100 UNITS/ML VIAL SUBQ PRN (17:17)
[2023-12-21] MEDS: VANCOMYCIN 1.25GM PREMIX 250 ML IV SCH (17:52)
[2023-12-21] MEDS: MORPHINE SULFATE 2 MG/ML SYR IVP PRN (19:59)
[2023-12-21 20:00] VITALS: BP 127/72; PULSE 96; RESP 18; TEMP 98.2; O2SAT 96
[2023-12-21] MEDS: PIPERACILLIN/TAZOBACTAM 3.375 GM in DEXTROSE 5% 50 ML IV SCH (20:14)
[2023-12-21] MEDS: GABAPENTIN 300 MG CAP PO SCH (20:16)
[2023-12-21] MEDS: FUROSEMIDE 20 MG TAB PO SCH (20:16)
[2023-12-21] MEDS: ALPRAZolam 0.5 MG TAB PO SCH (20:17)
[2023-12-22] MEDS: TEMAZEPAM 15 MG CAP PO PRN (00:22)
[2023-12-22 04:00] VITALS: BP 129/78; PULSE 82; RESP 18; TEMP 97.3; O2SAT 96
[2023-12-22 06:43] LABS: BASOPHILS % (AUTO) 0.5 % (0.0-2.0); EOSINOPHILS # (AUTO) 0.2 K/uL (0-0.4); EOSINOPHILS % (AUTO) 1.8 % (0.0-4.0); HEMATOCRIT 31.4 % (36-52); LYMPHOCYTES # (AUTO) 2.3 K/uL (2.0-11.5); LYMPHOCYTES % (AUTO) 23.7 % (20.5-51.1); MEAN CORPUSCULAR HEMOGLOBIN 23 pg (27-31); MEAN CORPUSCULAR HGB CONC 32 g/dL (33-37); MEAN CORPUSCULAR VOLUME 71.2 fL (80-94); MONOCYTES # (AUTO) 0.7 K/uL (0.8-1.0); NEUTROPHILS # (AUTO) 6.4 K/uL (1.8-7.7); PLATELET COUNT (AUTO) 415 K/uL (140-450); RED BLOOD CELL COUNT(AUTO) 4.41 MIL/uL (4.20-6.10); RED CELL DISTRIBUTION WIDTH 19.7 % (11.6-13.7); WHITE BLOOD COUNT (AUTO) 9.6 K/uL (4.8-10.8)
[2023-12-22 06:59] LABS: ALBUMIN 2.4 g/dL (3.4-5.0); ANION GAP 10.3 (8-16); CALCIUM 9.5 mg/dL (8.5-10.1); CARBON DIOXIDE 28.9 mmol/L (21-32); POTASSIUM 4.2 mmol/L (3.5-5.1); TOTAL BILIRUBIN 0.2 mg/dL (0.0-1.0); TOTAL PROTEIN, SERUM 9.3 g/dL (6.4-8.2)
[2023-12-22 08:00] VITALS: PULSE 90; RESP 18; O2SAT 94
[2023-12-22] MEDS: ENOXAPARIN 40 MG/0.4 ML SYR SUBQ SCH (08:37)
[2023-12-22] MEDS ORDERED: GAUZE TP SCH (17:00)
[2023-12-22] MEDS ORDERED: MEDS-TO-BEDS MC SCH (21:00)
== END 2023-12-22 12:23 | disposition left against medical advice (07) | DRG 720 ==
LOC: MED 08:57 → MMU 12:09 → MTU 13:07
PROVIDERS: ADMIT Internal Medicine; ATTEND Internal Medicine
DX: A41.9 Sepsis, unspecified organism (principal); E87.20 Acidosis, unspecified; E43 Unspecified severe protein-calorie malnutrition; E11.52 Type 2 diabetes mellitus with diabetic peripheral angiopathy with gangrene; E11.621 Type 2 diabetes mellitus with foot ulcer; I69.354 Hemiplegia and hemiparesis following cerebral infarction affecting left non-dominant side; L03.115 Cellulitis of right lower limb; M86.8X7 Other osteomyelitis, ankle and foot; E11.65 Type 2 diabetes mellitus with hyperglycemia; I10 Essential (primary) hypertension; E11.69 Type 2 diabetes mellitus with other specified complication; Z79.899 Other long term (current) drug therapy; Z91.199 Patient's noncompliance with other medical treatment and regimen due to unspecified reason; L97.415 Non-pressure chronic ulcer of right heel and midfoot with muscle involvement without evidence of necrosis; Z68.29 Body mass index [BMI] 29.0-29.9, adult
CPT/HCPCS: 36415; 73630; 80048; 80053; 80076; 80202; 82948; 83605; 85025; 85610; 85730; 87040; 87070; 87075; 87186; 87205; 96365; 96375; 99285; J1650; J1815; J2270; J2543; J3370; J3372; J7060

== ENCOUNTER 2024-01-05 12:08 | Inpatient (IN) | payer OTHER ==
[~2024-01-05] VITALS: Ht 180.3 cm; Wt 92.1 kg
[~2024-01-05 12:08] MED LIST changes: +FURO-572 PO
[2024-01-05 12:55] VITALS: BP 104/72; PULSE 115; RESP 18; TEMP 96.9; O2SAT 97
[2024-01-05 15:17] LABS: BASOPHILS % (AUTO) 0.5 % (0.0-2.0); EOSINOPHILS # (AUTO) 0.2 K/uL (0-0.4); EOSINOPHILS % (AUTO) 2.3 % (0.0-4.0); HEMATOCRIT 28.1 % (36-52); HEMOGLOBIN 9.1 g/dL (12.0-18.0); LYMPHOCYTES # (AUTO) 2.2 K/uL (2.0-11.5); LYMPHOCYTES % (AUTO) 25.8 % (20.5-51.1); MEAN CORPUSCULAR HEMOGLOBIN 23 pg (27-31); MEAN CORPUSCULAR HGB CONC 32 g/dL (33-37); MEAN CORPUSCULAR VOLUME 71.1 fL (80-94); MONOCYTES # (AUTO) 0.7 K/uL (0.8-1.0); MONOCYTES % (AUTO) 8.4 % (1.7-9.3); NEUTROPHILS # (AUTO) 5.5 K/uL (1.8-7.7); PLATELET COUNT (AUTO) 429 K/uL (140-450); RED BLOOD CELL COUNT(AUTO) 3.95 MIL/uL (4.20-6.10); RED CELL DISTRIBUTION WIDTH 19.1 % (11.6-13.7); WHITE BLOOD COUNT (AUTO) 8.7 K/uL (4.8-10.8)
[2024-01-05] MEDS ORDERED: VANCOMYCIN 1,000 MG VIAL ONE (15:19)
[2024-01-05] MEDS ORDERED: cefTRIAXone 1,000 MG VIAL ONE (15:19)
[2024-01-05 15:29] LABS: ALBUMIN 2.1 g/dL (3.4-5.0); ANION GAP 12.9 (8-16); CALCIUM 8.3 mg/dL (8.5-10.1); CARBON DIOXIDE 25.8 mmol/L (21-32); POTASSIUM 3.7 mmol/L (3.5-5.1); TOTAL BILIRUBIN 0.2 mg/dL (0.0-1.0); TOTAL PROTEIN, SERUM 8.4 g/dL (6.4-8.2)
[2024-01-05 15:44] LABS: LACTIC ACID 2.5 mmol/L (0.4-2.0)
[2024-01-05] MEDS: VANCOMYCIN 1,000 MG in DEXTROSE 5% 250 ML IV ONE (16:15)
[2024-01-05] MEDS: MORPHINE SULFATE 4 MG/ML SYR IVP PRN (21:53)
[2024-01-06 04:20] VITALS: BP 122/74; PULSE 91; RESP 12; TEMP 97.4; O2SAT 94
== END 2024-01-06 04:10 | disposition left against medical advice (07) | DRG 380 ==
LOC: MED 12:08 → MMU 19:23
PROVIDERS: ADMIT Hospitalist; ATTEND Hospitalist
DX: E11.621 Type 2 diabetes mellitus with foot ulcer (principal); L97.419 Non-pressure chronic ulcer of right heel and midfoot with unspecified severity; E43 Unspecified severe protein-calorie malnutrition; E11.40 Type 2 diabetes mellitus with diabetic neuropathy, unspecified; I69.354 Hemiplegia and hemiparesis following cerebral infarction affecting left non-dominant side; E87.1 Hypo-osmolality and hyponatremia; I10 Essential (primary) hypertension; J44.9 Chronic obstructive pulmonary disease, unspecified; Z53.29 Procedure and treatment not carried out because of patient's decision for other reasons; R07.89 Other chest pain; Z82.5 Family history of asthma and other chronic lower respiratory diseases; Z82.49 Family history of ischemic heart disease and other diseases of the circulatory system
CPT/HCPCS: 36415; 73630; 80053; 83605; 85025; 87040; 93005; 99285; J0696; J2270; J3370

== ENCOUNTER 2024-01-16 23:20 | Emergency (ER) | payer OTHER | END 2024-01-16 23:42 | disposition left against medical advice (07) | LOC: MED 23:20 | DX: M79.673 Pain in unspecified foot (principal); Z53.21 Procedure and treatment not carried out due to patient leaving prior to being seen by health care provider ==

== ENCOUNTER 2024-02-18 04:33 | Inpatient (IN) | payer OTHER ==
[~2024-02-18] VITALS: Ht 172.7 cm; Wt 90.7 kg
[~2024-02-18 04:33] MED LIST changes: +GABA-641; +SEMA1PEN3
[2024-02-18 04:37] VITALS: BP 142/79; PULSE 92; RESP 19; TEMP 98; O2SAT 96
[2024-02-18] MEDS ORDERED: KETOROLAC 30 MG/ML VIAL ONE (06:33)
[2024-02-18] MEDS ORDERED: PIPERACILLIN/TAZOBACTAM 3.375 GM VIAL IV ONE (06:58)
[2024-02-18 07:04] LABS: APPEARANCE,URINE CLEAR (CLEAR); BILIRUBIN,URINE NEGATIVE (NEGATIVE); BLOOD, URINE 1+ (NEGATIVE); COLOR,URINE YELLOW (YELLOW); LEUKOCYTE ESTERASE ,URINE NEGATIVE (NEGATIVE); NITRITE, URINE NEGATIVE (NEGATIVE); PROTEIN,URINE 1+ (NEGATIVE); UGLUCOSE NEGATIVE (NEGATIVE); UROBILINOGEN,URINE 0.2 EU/dL (0.2 - 1)
[2024-02-18] MEDS: MORPHINE SULFATE 4 MG/ML SYR IVP ONE (07:04)
[2024-02-18] MEDS: PIPERACILLIN/TAZOBACTAM 3.375 GM in DEXTROSE 5% 50 ML IV ONE (07:05)
[2024-02-18 07:11] LABS: BASOPHILS # (AUTO) 0.1 K/uL (0.00-0.22); BASOPHILS % (AUTO) 0.7 % (0.0-2.0); EOSINOPHILS # (AUTO) 0.2 K/uL (0-0.4); EOSINOPHILS % (AUTO) 1.8 % (0.0-4.0); HEMATOCRIT 30.7 % (36-52); HEMOGLOBIN 9.5 g/dL (12.0-18.0); LYMPHOCYTES # (AUTO) 1.7 K/uL (2.0-11.5); MEAN CORPUSCULAR HEMOGLOBIN 22 pg (27-31); MEAN CORPUSCULAR HGB CONC 31 g/dL (33-37); MEAN CORPUSCULAR VOLUME 70.5 fL (80-94); MONOCYTES # (AUTO) 0.6 K/uL (0.8-1.0); MONOCYTES % (AUTO) 6.1 % (1.7-9.3); NEUTROPHILS # (AUTO) 7.5 K/uL (1.8-7.7); NEUTROPHILS % (AUTO) 74.4 % (42.2-75.2); PLATELET COUNT (AUTO) 521 K/uL (140-450); RED BLOOD CELL COUNT(AUTO) 4.36 MIL/uL (4.20-6.10); RED CELL DISTRIBUTION WIDTH 18.3 % (11.6-13.7); WHITE BLOOD COUNT (AUTO) 10.1 K/uL (4.8-10.8)
[2024-02-18 07:30] LABS: INR 1.06 (0.8-1.2); PARTIAL THROMBOPLASTIN TIME 30.1 secs (22-35.6); PROTHROMBIN TIME 11.1 secs (10.8-13.4)
[2024-02-18 07:48] LABS: AMPHETAMINE, URINE POSITIVE ng/ml (NEG <=1000); OPIATE, URINE POSITIVE ng/mL (NEG <=2000)
[2024-02-18 07:49] LABS: BARBITURATE, URINE NEGATIVE ng/ml (NEG <=200); BENZODIAZEPINE, URINE POSITIVE ng/mL (NEG <=200); CANNABINOID, URINE NEGATIVE ng/mL (NEG <=50); COCAINE, URINE NEGATIVE ng/mL (NEG <=300); PHENCYCLIDINE SCREEN,URINE NEGATIVE ng/mL (NEG <=25)
[2024-02-18 07:52] LABS: ANION GAP 13.8 (8-16); CALCIUM 9.1 mg/dL (8.5-10.1); CARBON DIOXIDE 25.7 mmol/L (21-32); CREATININE 0.7 mg/dL (0.6-1.3); POTASSIUM 4.5 mmol/L (3.5-5.1)
[2024-02-18 07:57] LABS: BACTERIA,URINE FEW /HPF (None Seen); SQUAMOUS EPITHELIAL CELL,UR 0-3 (FEW) /LPF (0-3 (FEW)); WBC,URINE 0-5 /HPF (0-5)
[2024-02-18 08:02] LABS: LACTIC ACID 1.8 mmol/L (0.4-2.0)
[2024-02-18 08:08] LABS: ALANINE AMINOTRANSFERASE 32 U/L (12-78); ALBUMIN 1.8 g/dL (3.4-5.0); ALKALINE PHOSPHATASE 129 U/L (50-136); ASPARTATE AMINOTRANSFERASE 27 U/L (15-37); TOTAL BILIRUBIN 0.2 mg/dL (0.0-1.0); TOTAL PROTEIN, SERUM 8.5 g/dL (6.4-8.2)
[2024-02-18] MEDS ORDERED: MAG SULF 2000 MG/WATER PREMIX 50 ML IV PRN (08:55)
[2024-02-18] MEDS ORDERED: HYDROcodone/APAP 5/325 MG 1 TAB TAB PO PRN (08:55)
[2024-02-18] MEDS ORDERED: ACETAMINOPHEN 325 MG TAB PO PRN (08:55)
[2024-02-18] MEDS ORDERED: ZOLPIDEM 5 MG TAB PO PRN (08:55)
[2024-02-18] MEDS ORDERED: MORPHINE SULFATE 4 MG/ML SYR IVP PRN (08:55)
[2024-02-18] MEDS ORDERED: LORazepam 1 MG TAB PO PRN (08:55)
[2024-02-18] MEDS ORDERED: POTASSIUM CHLORIDE 10 MEQ TABER PO PRN (08:55)
[2024-02-18] MEDS ORDERED: ONDANSETRON 4 MG/2 ML VIAL IVP PRN (08:55)
[2024-02-18] MEDS ORDERED: VANCOMYCIN PER PHARMACY MC PRN (08:55)
[2024-02-18] MEDS ORDERED: KCL 20 MEQ IN 100 mL PREMIX 200 ML IV PRN (08:55)
[2024-02-18] MEDS ORDERED: MAGNESIUM OXIDE 400 MG TAB PO PRN (08:55)
[2024-02-18 09:30] VITALS: BP 151/81; PULSE 89; RESP 18; TEMP 98.2; O2SAT 94
[2024-02-18] MEDS ORDERED: VANCOMYCIN 1.25GM PREMIX 250 ML IV SCH (10:00)
[2024-02-18] MEDS ORDERED: PIPERACILLIN/TAZOBACTAM 3.375 GM in DEXTROSE 5% 50 ML IV SCH (12:00)
== END 2024-02-18 09:30 | disposition left against medical advice (07) | DRG 380 ==
LOC: MED 04:33 → MMU 09:02
PROVIDERS: ADMIT Internal Medicine; ATTEND Internal Medicine
DX: E11.621 Type 2 diabetes mellitus with foot ulcer (principal); L97.419 Non-pressure chronic ulcer of right heel and midfoot with unspecified severity; E11.40 Type 2 diabetes mellitus with diabetic neuropathy, unspecified; I69.954 Hemiplegia and hemiparesis following unspecified cerebrovascular disease affecting left non-dominant side; E11.65 Type 2 diabetes mellitus with hyperglycemia; D53.9 Nutritional anemia, unspecified; M79.671 Pain in right foot; Z53.29 Procedure and treatment not carried out because of patient's decision for other reasons; I10 Essential (primary) hypertension; Z79.899 Other long term (current) drug therapy
CPT/HCPCS: 36415; 80048; 80076; 80305; 81001; 83605; 84484; 85025; 85610; 85730; 87040; 96374; 99285; J1885; J2270; J2543; J3372

== ENCOUNTER 2024-02-25 01:40 | Emergency (ER) | payer OTHER | END 2024-02-25 07:29 | disposition left against medical advice (07) | LOC: MED 01:40 | DX: N48.29 Other inflammatory disorders of penis (principal); Z53.21 Procedure and treatment not carried out due to patient leaving prior to being seen by health care provider ==

== ENCOUNTER 2024-02-25 21:00 | Inpatient (IN) | payer OTHER ==
[~2024-02-25] VITALS: Ht 180.3 cm; Wt 92.1 kg
[2024-02-25 22:01] VITALS: BP 110/75; PULSE 113; RESP 16; TEMP 98.8; O2SAT 94
[2024-02-26 03:26] LABS: BASOPHILS # (AUTO) 0.1 K/uL (0.00-0.22); BASOPHILS % (AUTO) 0.9 % (0.0-2.0); EOSINOPHILS # (AUTO) 0.1 K/uL (0-0.4); EOSINOPHILS % (AUTO) 0.8 % (0.0-4.0); HEMATOCRIT 33.5 % (36-52); HEMOGLOBIN 10.7 g/dL (12.0-18.0); LYMPHOCYTES # (AUTO) 2.7 K/uL (2.0-11.5); LYMPHOCYTES % (AUTO) 17.7 % (20.5-51.1); MEAN CORPUSCULAR HEMOGLOBIN 22 pg (27-31); MEAN CORPUSCULAR HGB CONC 32 g/dL (33-37); MEAN CORPUSCULAR VOLUME 69.9 fL (80-94); MONOCYTES # (AUTO) 0.9 K/uL (0.8-1.0); MONOCYTES % (AUTO) 6.1 % (1.7-9.3); NEUTROPHILS # (AUTO) 11.3 K/uL (1.8-7.7); NEUTROPHILS % (AUTO) 74.5 % (42.2-75.2); PLATELET COUNT (AUTO) 512 K/uL (140-450); RED BLOOD CELL COUNT(AUTO) 4.79 MIL/uL (4.20-6.10); RED CELL DISTRIBUTION WIDTH 18.3 % (11.6-13.7); WHITE BLOOD COUNT (AUTO) 15.1 K/uL (4.8-10.8)
[2024-02-26] MEDS ORDERED: PIPERACILLIN/TAZOBACTAM 3.375 GM VIAL IV ONE (03:33)
[2024-02-26] MEDS: NACL 0.9% 1,000 ML IV ONE (03:43)
[2024-02-26] MEDS: PIPERACILLIN/TAZOBACTAM 3.375 GM in DEXTROSE 5% 50 ML IV ONE (03:44)
[2024-02-26 03:46] LABS: ANION GAP 12.1 (8-16); CALCIUM 9.6 mg/dL (8.5-10.1); CARBON DIOXIDE 27.6 mmol/L (21-32); POTASSIUM 4.7 mmol/L (3.5-5.1)
[2024-02-26] MEDS ORDERED: VANCOMYCIN 1,000 MG VIAL ONE (04:42)
[2024-02-26] MEDS: VANCOMYCIN 1,000 MG in DEXTROSE 5% 250 ML IV ONE (05:00)
[2024-02-26] MEDS: buprenorphine HCL 2 MG sublingual tab SL ONE (06:03)
[2024-02-26] MEDS ORDERED: ACETAMINOPHEN 325 MG TAB PO PRN (06:35)
[2024-02-26] MEDS ORDERED: ONDANSETRON 4 MG/2 ML VIAL IVP PRN (06:35)
[2024-02-26] MEDS ORDERED: VANCOMYCIN PER PHARMACY MC PRN (06:40)
[2024-02-26 08:47] VITALS: BP 120/73; PULSE 90; RESP 20; TEMP 98.5; O2SAT 99
[2024-02-26] MEDS: MEDS-TO-BEDS MC SCH (09:02)
[2024-02-26] MEDS: MORPHINE SULFATE 2 MG/ML SYR IVP PRN (09:53)
[2024-02-26] MEDS ORDERED: VANCOMYCIN 1.25GM PREMIX 250 ML IV SCH (17:00)
== END 2024-02-26 10:00 | disposition left against medical advice (07) | DRG 344 ==
LOC: MED 21:00 → MTU 02-26 06:35
PROVIDERS: ADMIT Hospitalist; ATTEND Hospitalist
DX: E11.69 Type 2 diabetes mellitus with other specified complication (principal); M86.9 Osteomyelitis, unspecified; E11.621 Type 2 diabetes mellitus with foot ulcer; L97.519 Non-pressure chronic ulcer of other part of right foot with unspecified severity; I10 Essential (primary) hypertension; Z53.29 Procedure and treatment not carried out because of patient's decision for other reasons; Z91.199 Patient's noncompliance with other medical treatment and regimen due to unspecified reason; Z79.899 Other long term (current) drug therapy; E11.65 Type 2 diabetes mellitus with hyperglycemia
CPT/HCPCS: 36415; 80048; 82803; 83605; 85025; 85651; 86140; 87040; 96365; 96367; 99285; J0696; J2270; J2543; J3370; J3372; J7060

== ENCOUNTER 2024-03-08 21:58 | Emergency (ER) | payer OTHER ==
[~2024-03-08 21:58] MED LIST changes: -GABA-641; -SEMA1PEN3
== END 2024-03-09 05:37 | disposition left against medical advice (07) ==
LOC: MED 21:58
DX: M79.606 Pain in leg, unspecified (principal); Z53.21 Procedure and treatment not carried out due to patient leaving prior to being seen by health care provider

== ENCOUNTER 2024-03-09 06:15 | Inpatient (IN) | payer OTHER ==
[~2024-03-09] VITALS: Ht 172.7 cm; Wt 81.2 kg
[2024-03-09 06:26] VITALS: BP 130/83; PULSE 93; RESP 20; TEMP 98; O2SAT 97
[2024-03-09] MEDS: SODIUM BICARBONATE 8.4% PFS 50 MEQ/50 ML SYR IVP ONE (07:50)
[2024-03-09] MEDS ORDERED: SODIUM BICARBONATE 8.4% PFS 50 MEQ/50 ML SYR IVP ONE (07:55)
[2024-03-09] MEDS ORDERED: VANCOMYCIN 1,000 MG VIAL ONE (07:58)
[2024-03-09] MEDS ORDERED: PIPERACILLIN/TAZOBACTAM 3.375 GM VIAL IV ONE (07:58)
[2024-03-09] MEDS: VANCOMYCIN 1,000 MG in DEXTROSE 5% 250 ML IV ONE (08:54)
[2024-03-09 08:56] LABS: BASOPHILS % (AUTO) 0.3 % (0.0-2.0); EOSINOPHILS # (AUTO) 0.1 K/uL (0-0.4); EOSINOPHILS % (AUTO) 1.2 % (0.0-4.0); HEMATOCRIT 32.3 % (36-52); HEMOGLOBIN 10.4 g/dL (12.0-18.0); LYMPHOCYTES # (AUTO) 1.5 K/uL (2.0-11.5); LYMPHOCYTES % (AUTO) 14.1 % (20.5-51.1); MEAN CORPUSCULAR HEMOGLOBIN 23 pg (27-31); MEAN CORPUSCULAR HGB CONC 32 g/dL (33-37); MEAN CORPUSCULAR VOLUME 69.7 fL (80-94); MONOCYTES # (AUTO) 0.7 K/uL (0.8-1.0); MONOCYTES % (AUTO) 6.7 % (1.7-9.3); NEUTROPHILS # (AUTO) 8.4 K/uL (1.8-7.7); NEUTROPHILS % (AUTO) 77.7 % (42.2-75.2); PLATELET COUNT (AUTO) 478 K/uL (140-450); RED BLOOD CELL COUNT(AUTO) 4.63 MIL/uL (4.20-6.10); RED CELL DISTRIBUTION WIDTH 18.5 % (11.6-13.7); WHITE BLOOD COUNT (AUTO) 10.8 K/uL (4.8-10.8)
[2024-03-09] MEDS ORDERED: MORPHINE SULFATE 4 MG/ML SYR ONE (08:58)
[2024-03-09 08:59] LABS: ALBUMIN 2.4 g/dL (3.4-5.0); ANION GAP 13.6 (8-16); CALCIUM 9.7 mg/dL (8.5-10.1); CARBON DIOXIDE 26.2 mmol/L (21-32); CREATININE 1.1 mg/dL (0.6-1.3); POTASSIUM 4.8 mmol/L (3.5-5.1); TOTAL BILIRUBIN 0.4 mg/dL (0.0-1.0); TOTAL PROTEIN, SERUM 9.9 g/dL (6.4-8.2)
[2024-03-09] MEDS: MORPHINE SULFATE 4 MG/ML SYR IVP ONE (09:10)
[2024-03-09] MEDS ORDERED: DEXTROSE 50% 50 ML SYR IVP PRN (11:40)
[2024-03-09] MEDS ORDERED: ACETAMINOPHEN 325 MG TAB PO PRN (11:40)
[2024-03-09] MEDS ORDERED: VANCOMYCIN PER PHARMACY MC PRN (11:40)
[2024-03-09] MEDS ORDERED: ONDANSETRON 4 MG/2 ML VIAL IVP PRN (11:40)
[2024-03-09] MEDS: PIPERACILLIN/TAZOBACTAM 3.375 GM in DEXTROSE 5% 50 ML IV ONE (11:41)
[2024-03-09] MEDS: NACL 0.9% 1,000 ML IV SCH (13:40)
[2024-03-09 13:54] LABS: APPEARANCE,URINE CLEAR (CLEAR); BILIRUBIN,URINE NEGATIVE (NEGATIVE); BLOOD, URINE 1+ (NEGATIVE); COLOR,URINE YELLOW (YELLOW); LEUKOCYTE ESTERASE ,URINE NEGATIVE (NEGATIVE); NITRITE, URINE NEGATIVE (NEGATIVE); PROTEIN,URINE 1+ (NEGATIVE); UGLUCOSE 3+ (NEGATIVE); UROBILINOGEN,URINE 0.2 EU/dL (0.2 - 1)
[2024-03-09 13:57] LABS: BACTERIA,URINE FEW /HPF (None Seen); MUCUS,URINE 1+ /LPF (None Seen); SQUAMOUS EPITHELIAL CELL,UR 0-3 (FEW) /LPF (0-3 (FEW)); WBC,URINE 0-5 /HPF (0-5)
[2024-03-09 16:06] VITALS: BP 111/72; PULSE 107; RESP 18; TEMP 97.6; O2SAT 100
[2024-03-09] MEDS: MORPHINE SULFATE 2 MG/ML SYR IVP PRN (16:12)
[2024-03-09] MEDS: BLOOD GLUCOSE MONITORING 1 DEV DEV FS SCH (16:16)
[2024-03-09] MEDS: INSULIN LISPRO SLIDING SCALE 100 UNITS/ML VIAL SUBQ PRN (16:17)
[2024-03-09 16:23] VITALS: PULSE 107; RESP 18
[2024-03-09 20:00] VITALS: BP 118/66; PULSE 101; RESP 18; TEMP 98.3; O2SAT 100; O2SAT 98
[2024-03-09] MEDS: VANCOMYCIN 1,000 MG in NACL 0.9% 250 ML IV SCH (20:30)
[2024-03-09] MEDS: PIPERACILLIN/TAZOBACTAM 3.375 GM in DEXTROSE 5% 50 ML IV SCH (20:30)
[2024-03-09] MEDS: HYDROcodone/APAP 5/325 MG 1 TAB TAB PO PRN (20:31)
[2024-03-09] MEDS: LORazepam 2 MG/ML VIAL IVP PRN (20:31)
[2024-03-09] MEDS ORDERED: PIPERACILLIN/TAZOBACTAM 3.375 GM in DEXTROSE 5% 50 ML IV SCH (21:00)
[2024-03-10 04:00] VITALS: BP 128/70; PULSE 98; RESP 18; TEMP 97.9; O2SAT 97
[2024-03-10 08:00] VITALS: PULSE 92; RESP 18; O2SAT 96
[2024-03-10] MEDS: NICOTINE TRANSD SYS 21 MG/24 HR PATCH TD SCH (08:22)
[2024-03-10] MEDS: MEDS-TO-BEDS MC SCH (09:00)
[2024-03-10] MEDS ORDERED: ROCURONIUM 50 MG/5 ML VIAL IV ONE (14:35)
[2024-03-10] MEDS ORDERED: GLYCOPYRROLATE 0.2 MG/ML VIAL ONE (14:35)
[2024-03-10] MEDS ORDERED: fentaNYL citrate 0.05 MG/ML VIAL ONE ×2 (14:35→14:39)
[2024-03-10] MEDS ORDERED: METOCLOPRAMIDE 10 MG/2 ML INJ VIAL ONE (14:35)
[2024-03-10] MEDS ORDERED: SEVOFLURANE 250 ML BTL INH ONE (14:35)
[2024-03-10] MEDS ORDERED: PHENYLEPHRINE 10 MG/ML VIAL ONE (14:35)
[2024-03-10] MEDS: LIDOCAINE MPF 1% 0 ML ONE (14:38)
[2024-03-10] MEDS ORDERED: MIDAZOLAM 2 MG/2 ML VIAL ONE (14:39)
[2024-03-10] MEDS: HYDROGEN PEROXIDE 3% 240 ML BTL TP ONE (15:14)
[2024-03-10] MEDS: BUPIVACAINE-MPF 0.25% 30 ML VIAL INJ ONE (15:15)
[2024-03-10] MEDS: LIDOCAINE 1% 500 MG/50 ML VIAL ONE (15:15)
[2024-03-10 16:00] VITALS: BP 132/75; PULSE 95; RESP 18; TEMP 98.4; O2SAT 98
[2024-03-10] MEDS: HYDROmorphone 1 MG/ML AMP IVP PRN (16:35)
[2024-03-10] MEDS: HYDROmorphone PFS 2 MG/ML SYR ONE (17:31)
[2024-03-10 20:00] VITALS: PULSE 106; RESP 18; O2SAT 96
[2024-03-10 22:07] LABS: AMPHETAMINE, URINE POSITIVE ng/ml (NEG <=1000); BENZODIAZEPINE, URINE POSITIVE ng/mL (NEG <=200); OPIATE, URINE POSITIVE ng/mL (NEG <=2000)
[2024-03-10 22:08] LABS: BARBITURATE, URINE NEGATIVE ng/ml (NEG <=200); CANNABINOID, URINE NEGATIVE ng/mL (NEG <=50); COCAINE, URINE NEGATIVE ng/mL (NEG <=300); PHENCYCLIDINE SCREEN,URINE NEGATIVE ng/mL (NEG <=25)
== END 2024-03-10 22:30 | disposition left against medical advice (07) | DRG 305 ==
LOC: MED 06:15 → MMU 11:45 → MTU 13:04
PROVIDERS: ADMIT Hospitalist; ATTEND Hospitalist
PROC: 0QBJ0ZZ Excision of Right Fibula, Open Approach (ICD-10-PCS; 2024-03-10)
PROC: 0QBG0ZZ Excision of Right Tibia, Open Approach (ICD-10-PCS; 2024-03-10)
PROC: 0Y6H0Z3 Detachment at Right Lower Leg, Low, Open Approach (ICD-10-PCS; principal; 2024-03-10 14:20)
DX: E11.69 Type 2 diabetes mellitus with other specified complication (principal); E44.0 Moderate protein-calorie malnutrition; E11.40 Type 2 diabetes mellitus with diabetic neuropathy, unspecified; E87.1 Hypo-osmolality and hyponatremia; M86.8X7 Other osteomyelitis, ankle and foot; E11.621 Type 2 diabetes mellitus with foot ulcer; L97.519 Non-pressure chronic ulcer of other part of right foot with unspecified severity; L03.115 Cellulitis of right lower limb; E11.42 Type 2 diabetes mellitus with diabetic polyneuropathy; F19.10 Other psychoactive substance abuse, uncomplicated; Z53.29 Procedure and treatment not carried out because of patient's decision for other reasons; Z72.0 Tobacco use; Z79.84 Long term (current) use of oral hypoglycemic drugs; Z79.899 Other long term (current) drug therapy; Z79.4 Long term (current) use of insulin; Z68.27 Body mass index [BMI] 27.0-27.9, adult
CPT/HCPCS: 36415; 71045; 73590; 73630; 80053; 80305; 81001; 82948; 83605; 85025; 87040; 87070; 87075; 87081; 87186; 87205; 88307; 88311; 93005; 96365; 96375; 99291; 99292; J1170; J1644; J1815; J2001; J2060; J2250; J2270; J2543; J2765; J3010; J3370; J3490; J7030; J7060

== ENCOUNTER 2024-04-04 05:18 | Inpatient (IN) | payer OTHER ==
[~2024-04-04] VITALS: Ht 170.2 cm; Wt 85.7 kg
[~2024-04-04 05:18] MED LIST changes: -GABA300C55 PO; -IBUP-2213 PO
[2024-04-04 05:40] VITALS: BP 107/80; PULSE 86; RESP 20; TEMP 98; O2SAT 97
[2024-04-04] MEDS ORDERED: PIPERACILLIN/TAZOBACTAM 3.375 GM VIAL IV ONE (06:23)
[2024-04-04 06:36] LABS: BASOPHILS % (AUTO) 0.5 % (0.0-2.0); EOSINOPHILS # (AUTO) 0.3 K/uL (0-0.4); HEMATOCRIT 30.3 % (36-52); HEMOGLOBIN 9.2 g/dL (12.0-18.0); LYMPHOCYTES # (AUTO) 2.3 K/uL (2.0-11.5); LYMPHOCYTES % (AUTO) 24.5 % (20.5-51.1); MEAN CORPUSCULAR HEMOGLOBIN 22 pg (27-31); MEAN CORPUSCULAR HGB CONC 30 g/dL (33-37); MEAN CORPUSCULAR VOLUME 70.7 fL (80-94); MONOCYTES # (AUTO) 0.6 K/uL (0.8-1.0); MONOCYTES % (AUTO) 6.7 % (1.7-9.3); NEUTROPHILS # (AUTO) 6.1 K/uL (1.8-7.7); NEUTROPHILS % (AUTO) 65.3 % (42.2-75.2); PLATELET COUNT (AUTO) 489 K/uL (140-450); RED BLOOD CELL COUNT(AUTO) 4.29 MIL/uL (4.20-6.10); RED CELL DISTRIBUTION WIDTH 19.5 % (11.6-13.7); WHITE BLOOD COUNT (AUTO) 9.4 K/uL (4.8-10.8)
[2024-04-04] MEDS: ONDANSETRON 4 MG/2 ML VIAL IVP ONE (06:37)
[2024-04-04] MEDS: MORPHINE SULFATE 4 MG/ML SYR IVP ONE (06:38)
[2024-04-04] MEDS: PIPERACILLIN/TAZOBACTAM 3.375 GM in DEXTROSE 5% 50 ML IV ONE (06:38)
[2024-04-04 06:48] LABS: ANION GAP 11.6 (8-16); CALCIUM 9.2 mg/dL (8.5-10.1); CARBON DIOXIDE 29.6 mmol/L (21-32); CREATININE 1.2 mg/dL (0.6-1.3); POTASSIUM 4.2 mmol/L (3.5-5.1)
[2024-04-04] MEDS ORDERED: VANCOMYCIN 1,000 MG VIAL ONE (06:49)
[2024-04-04 06:52] LABS: ALBUMIN 2.6 g/dL (3.4-5.0); TOTAL BILIRUBIN 0.1 mg/dL (0.0-1.0); TOTAL PROTEIN, SERUM 8.8 g/dL (6.4-8.2)
[2024-04-04] MEDS: VANCOMYCIN 1,000 MG in DEXTROSE 5% 250 ML IV ONE (06:56)
[2024-04-04 06:57] LABS: INR 1.02 (0.8-1.2); PARTIAL THROMBOPLASTIN TIME 29.1 secs (22-35.6); PROTHROMBIN TIME 10.7 secs (10.8-13.4)
[2024-04-04] MEDS: NACL 0.9% 1,000 ML IV ONE (07:17)
[2024-04-04] MEDS ORDERED: MAGNESIUM OXIDE 400 MG TAB PO PRN (07:25)
[2024-04-04] MEDS ORDERED: DEXTROSE 50% 50 ML SYR IVP PRN (07:25)
[2024-04-04] MEDS ORDERED: VANCOMYCIN PER PHARMACY MC PRN (07:25)
[2024-04-04] MEDS ORDERED: ACETAMINOPHEN 325 MG TAB PO PRN (07:25)
[2024-04-04] MEDS ORDERED: MAG SULF 2000 MG/WATER PREMIX 50 ML IV PRN (07:25)
[2024-04-04] MEDS ORDERED: POTASSIUM CHLORIDE 10 MEQ TABER PO PRN (07:25)
[2024-04-04] MEDS ORDERED: ONDANSETRON 4 MG/2 ML VIAL IVP PRN ×2 (07:25→18:10)
[2024-04-04] MEDS: BLOOD GLUCOSE MONITORING 1 DEV DEV FS SCH (07:30)
[2024-04-04 07:47] LABS: APPEARANCE,URINE CLEAR (CLEAR); BILIRUBIN,URINE NEGATIVE (NEGATIVE); BLOOD, URINE NEGATIVE (NEGATIVE); COLOR,URINE YELLOW (YELLOW); LEUKOCYTE ESTERASE ,URINE NEGATIVE (NEGATIVE); NITRITE, URINE NEGATIVE (NEGATIVE); PROTEIN,URINE TRACE (NEGATIVE); UGLUCOSE NEGATIVE (NEGATIVE); UROBILINOGEN,URINE 0.2 EU/dL (0.2 - 1)
[2024-04-04 07:50] LABS: BACTERIA,URINE OCCASSIONAL /HPF (None Seen); RBC,URINE 0-5 /HPF (0-5); SQUAMOUS EPITHELIAL CELL,UR 0-3 (FEW) /LPF (0-3 (FEW)); WBC,URINE 0-5 /HPF (0-5)
[2024-04-04 08:00] VITALS: PULSE 85; RESP 18; TEMP 98.3; O2SAT 99
[2024-04-04] MEDS: NACL 0.9% 1,000 ML IV SCH (08:55)
[2024-04-04] MEDS: DOCUSATE SODIUM 100 MG GELCAP PO SCH (08:56)
[2024-04-04] MEDS: INSULIN LANTUS 100 UNITS/ML 10 ML VIAL SUBQ SCH (08:58)
[2024-04-04] MEDS: INSULIN LISPRO SLIDING SCALE 100 UNITS/ML VIAL SUBQ PRN (08:59)
[2024-04-04] MEDS: PIPERACILLIN/TAZOBACTAM 3.375 GM in DEXTROSE 5% 50 ML IV SCH (11:22)
[2024-04-04 12:24] VITALS: BP 112/81; PULSE 85; RESP 18; TEMP 98.2; O2SAT 99
[2024-04-04] MEDS ORDERED: GABAPENTIN 100 MG CAP PO SCH (13:00)
[2024-04-04] MEDS: GABAPENTIN 100 MG CAP PO SCH (13:30)
[2024-04-04] MEDS: GABAPENTIN 300 MG CAP PO SCH (13:30)
[2024-04-04] MEDS: HYDROcodone/APAP 5/325 MG 1 TAB TAB PO PRN (13:41)
[2024-04-04] MEDS: MORPHINE SULFATE 2 MG/ML SYR IVP PRN (16:33)
[2024-04-04] MEDS: BUPIVACAINE-MPF 0.25% 30 ML VIAL INJ ONE (16:56)
[2024-04-04] MEDS: LIDOCAINE MPF 1% 0 ML ONE (16:56)
[2024-04-04] MEDS: HYDROGEN PEROXIDE 3% 240 ML BTL TP ONE (16:57)
[2024-04-04] MEDS: LIDOCAINE 1% 500 MG/50 ML VIAL ONE (16:57)
[2024-04-04] MEDS ORDERED: SEVOFLURANE 250 ML BTL INH ONE (17:00)
[2024-04-04] MEDS: HYDROmorphone PFS 2 MG/ML SYR ONE ×3 (17:12→18:36)
[2024-04-04] MEDS: PROPOFOL 200 MG/20 ML VIAL IV ONE (17:13)
[2024-04-04] MEDS: SUCCINYLCHOLINE CHLORIDE 200 MG/10 ML VIAL IVP ONE (17:13)
[2024-04-04] MEDS ORDERED: MEPERIDINE 25 MG/ML SYR IVP PRN (18:10)
[2024-04-04] MEDS: METOCLOPRAMIDE 10 MG/2 ML INJ VIAL ONE (18:31)
[2024-04-04] MEDS: ONDANSETRON 4 MG/2 ML VIAL ONE (18:31)
[2024-04-04] MEDS: HYDROmorphone 1 MG/ML AMP IVP PRN (18:37)
[2024-04-04] MEDS: fentaNYL citrate 0.05 MG/ML VIAL IVP ONE ×2 (18:47→19:07)
[2024-04-04] MEDS ORDERED: ACETAMINOPHEN 100 ML IV PRN (19:00)
[2024-04-04] MEDS: ACETAMINOPHEN 100 ML IV ONE (19:04)
[2024-04-04] MEDS: fentaNYL citrate 0.05 MG/ML VIAL ONE (19:42)
[2024-04-04 20:00] VITALS: BP 127/81; PULSE 84; RESP 18; TEMP 98; O2SAT 98
[2024-04-04] MEDS: VANCOMYCIN 1,000 MG in NACL 0.9% 250 ML IV SCH (20:45)
[2024-04-04] MEDS: MEDS-TO-BEDS MC SCH (21:00)
[2024-04-05] VITALS: BP 121/76; PULSE 86; RESP 18; TEMP 98; O2SAT 98
[2024-04-05 04:00] VITALS: BP 120/68; PULSE 80; RESP 18; TEMP 97.8; O2SAT 97
[2024-04-05 06:45] LABS: BASOPHILS % (AUTO) 0.3 % (0.0-2.0); EOSINOPHILS # (AUTO) 0.1 K/uL (0-0.4); EOSINOPHILS % (AUTO) 0.6 % (0.0-4.0); HEMATOCRIT 27.7 % (36-52); HEMOGLOBIN 8.5 g/dL (12.0-18.0); LYMPHOCYTES # (AUTO) 1.4 K/uL (2.0-11.5); LYMPHOCYTES % (AUTO) 12.6 % (20.5-51.1); MEAN CORPUSCULAR HEMOGLOBIN 22 pg (27-31); MEAN CORPUSCULAR HGB CONC 31 g/dL (33-37); MEAN CORPUSCULAR VOLUME 69.7 fL (80-94); MONOCYTES # (AUTO) 0.6 K/uL (0.8-1.0); MONOCYTES % (AUTO) 5.3 % (1.7-9.3); NEUTROPHILS # (AUTO) 8.8 K/uL (1.8-7.7); NEUTROPHILS % (AUTO) 81.2 % (42.2-75.2); PLATELET COUNT (AUTO) 495 K/uL (140-450); RED BLOOD CELL COUNT(AUTO) 3.97 MIL/uL (4.20-6.10); RED CELL DISTRIBUTION WIDTH 19.3 % (11.6-13.7); WHITE BLOOD COUNT (AUTO) 10.8 K/uL (4.8-10.8)
[2024-04-05 06:59] LABS: ALBUMIN 2.4 g/dL (3.4-5.0); ANION GAP 12.3 (8-16); CALCIUM 8.7 mg/dL (8.5-10.1); CARBON DIOXIDE 26.4 mmol/L (21-32); CREATININE 0.8 mg/dL (0.6-1.3); POTASSIUM 3.7 mmol/L (3.5-5.1); TOTAL BILIRUBIN 0.2 mg/dL (0.0-1.0); TOTAL PROTEIN, SERUM 8.5 g/dL (6.4-8.2)
[2024-04-05 08:00] VITALS: BP 132/70; PULSE 89; RESP 18; RESP 19; TEMP 97.6; O2SAT 97
[2024-04-05] MEDS: VANCOMYCIN 500 MG in NACL 0.9% 100 ML IV SCH (08:00)
[2024-04-05] MEDS: MEDS-TO-BEDS MC SCH (08:52)
[2024-04-05 16:00] VITALS: BP 136/80; PULSE 91; RESP 19; TEMP 98.4; O2SAT 97
== END 2024-04-05 17:20 | disposition left against medical advice (07) | DRG 711 ==
LOC: MED 05:18 → MMU 07:27
PROVIDERS: ADMIT Student in an Organized Health Care Education/Training Program; ATTEND Student in an Organized Health Care Education/Training Program
PROC: 0QBG0ZZ Excision of Right Tibia, Open Approach (ICD-10-PCS; 2024-04-04)
PROC: 0QUJ0JZ Supplement Right Fibula with Synthetic Substitute, Open Approach (ICD-10-PCS; 2024-04-04)
PROC: 0QUG0JZ Supplement Right Tibia with Synthetic Substitute, Open Approach (ICD-10-PCS; 2024-04-04)
PROC: 0QBJ0ZZ Excision of Right Fibula, Open Approach (ICD-10-PCS; principal; 2024-04-04 17:00)
DX: T81.49XA Infection following a procedure, other surgical site, initial encounter (principal); D84.9 Immunodeficiency, unspecified; N17.9 Acute kidney failure, unspecified; E44.1 Mild protein-calorie malnutrition; E11.22 Type 2 diabetes mellitus with diabetic chronic kidney disease; L97.419 Non-pressure chronic ulcer of right heel and midfoot with unspecified severity; M86.8X6 Other osteomyelitis, lower leg; E87.1 Hypo-osmolality and hyponatremia; Z79.4 Long term (current) use of insulin; E11.621 Type 2 diabetes mellitus with foot ulcer; L02.415 Cutaneous abscess of right lower limb; N18.9 Chronic kidney disease, unspecified; E11.69 Type 2 diabetes mellitus with other specified complication; L03.115 Cellulitis of right lower limb; J44.9 Chronic obstructive pulmonary disease, unspecified; I12.9 Hypertensive chronic kidney disease with stage 1 through stage 4 chronic kidney disease, or unspecified chronic kidney disease; Z53.29 Procedure and treatment not carried out because of patient's decision for other reasons; Z79.84 Long term (current) use of oral hypoglycemic drugs; Z79.899 Other long term (current) drug therapy
CPT/HCPCS: 36415; 71045; 73590; 80048; 80053; 80076; 80202; 81001; 82948; 83605; 85025; 85610; 85730; 87040; 87070; 87075; 87086; 87186; 87205; 88304; 93005; 96365; 96368; 96375; 99285; C1762; J0330; J1170; J1644; J1815; J2001; J2270; J2405; J2543; J2704; J2765; J3010; J3370; J3371; J3490; J7030; J7060; Q0092